=== PATIENT | female | born 1960 | race Two or more races ===

== ENCOUNTER 2025-07-23 18:02 | Inpatient (IN) | payer MEDICAID, SELFPAY ==
[2025-07-23] VITALS (9 sets, daily range): BP systolic 138–205; BP diastolic 81–105; PULSE 59–80; RESP 14–97; TEMP 36.9–37; O2SAT 97–99
--- NOTE | 2025-07-23 18:38 | PD.EDFEVER ---
ED Fever RME/HPI General Chief Complaint: Neuro Symptoms/Deficit Stated Complaint: MOUTH MOVES TO ONE SIDE, DIFF CHEWING Time Seen by Provider: 07/23/25 18:59 Arrival date/time: 07/23/25 18:02 RME / HPI RME / HPI Narrative: See MDM for Dr. Mcclure's HPI Documentation. Related Data Home Medications ?Medication ?Instructions ?Recorded ?Confirmed simvastatin 40 mg tablet 40 mg PO QDAY 07/23/25 07/23/25 Allergies Allergy/AdvReac Type Severity Reaction Status Date / Time No Known Allergies Allergy Verified 07/23/25 18:11 Review of Systems Review of Systems Systems Reviewed: All systems reviewed, normal except as documented Past Medical History Past Medical History CARDIAC: Positive Hypercholesterolemia and Hypertension RESPIRATORY: Positive Asthma Physical Exam Narrative Physical exam: See MDM for Dr. Mcclure's Physical Exam Documentation. ED Exam Narrative Physical exam: See MDM for Dr. Mcclure's Physical Exam Documentation. Course Quality Measures none Orders Category Date Time Status Bedside Blood Glucose NOW Care 07/23/25 19:00 Active Chief Medical Physicist Q4H START 00 Care 07/23/25 19:00 Active Continuous Pulse Oximetry NOW Care 07/23/25 19:00 Completed EKG (ED ONLY) *Do not use* NOW Care 07/23/25 19:00 Completed In and Out Catheter NEEDED Care 07/23/25 19:00 Active Insert IV NOW Care 07/23/25 19:00 Active NIH Stroke Scale now Care 07/23/25 19:00 Active NPO NOW Care 07/23/25 19:00 Active Nurse Swallow Screen x1 Care 07/23/25 19:00 Active Consult to Neurology / Tele-Neurology Routine Cons 07/23/25 19:[address] angio stroke protocol Stat Exams 07/23/25 19:[address] stroke protocol Stat Exams 07/23/25 19:00 Completed EKG (ED Only) Stat Exams 07/23/25 19:00 Draft XR chest 1V portable Stat Exams 07/23/25 19:00 Completed Alcohol, Blood Medical Stat Lab 07/23/25 19:05 Completed B-Type Natriuretic Peptide Stat Lab 07/23/25 19:05 Completed Bilirubin,Direct Stat Lab 07/23/25 19:05 Completed CBC Stat Lab 07/23/25 19:05 Completed Comprehensive Metabolic Panel Stat Lab 07/23/25 19:05 Completed Drug Screen,Urine Stat Lab 07/23/25 19:35 Completed Hemoglobin A1C [Glycohemoglobin w (eAG)] Stat Lab 07/23/25 19:05 Completed Magnesium Stat Lab 07/23/25 19:05 Completed Partial Thromboplastin Time Stat Lab 07/23/25 19:05 Completed Prothrombin Time with INR Stat Lab 07/23/25 19:05 Completed TSH [Thyroid Stimulating Hormone] Stat Lab 07/23/25 19:05 Completed Troponin I Stat Lab 07/23/25 19:05 Completed Urinalysis, C/S if Indicated Stat Lab 07/23/25 19:35 Completed Aspirin Chew Med 07/23/25 19:27 Discontinued 324 mg PO X1 ONE Clopidogrel [Plavix] Med 07/23/25 19:27 Discontinued 300 mg PO X1 ONE Labetalol* IV [Trandate* IV] Med 07/23/25 19:00 Active 10 mg IVP Q15M PRN Ondansetron Inj [Zofran Inj] Med 07/23/25 19:00 Active 4 mg IVP Q4HR PRN Sodium Chloride 0.9% 1000 ml [Ns] 1,000 ml Med 07/23/25 19:00 Active IV Q10H Oxygen Delivery NOW RT 07/23/25 19:00 Active Vital Signs Vital signs: Vital Signs Temperature 98.5 F 07/23/25 18:18 Pulse Rate 67 07/23/25 18:18 Respiratory Rate 20 07/23/25 18:18 Blood Pressure 205/90 H 07/23/25 18:18 Oxygen Delivery Method Room Air 07/23/25 18:18 Fever MDM Narrative MDM Narrative:: This section includes all my notes and documentations, including HPI, PE, and ED course. Jonh Mcclure MD HPI: 64 y/o female with Hx of Hypercholesterolemia, HTN, and Asthma here with severe headache, right-sided facial droop, and chest pain x approximately 24 hours. Equivocal speech impairment, patient has trouble describing in details. No visual impairment. No loss of power in the arms or legs. No other complaints. ROS: All negative except as documented in HPI. Physical Exam: General: Alert and oriented. Eyes: Conjunctivae and lids clear. EOMI. PERRL. ENT: No nasal congestion. Neck: Supple. No carotid bruit. No JVD. Heart: RRR. Lungs: No respiratory distress. Good air movement. No rhonchi, wheezing, rales. Abdomen: Soft and nontender. Legs: No clubbing, cyanosis, edema. Skin: Warm and dry. Neuro: Alert and oriented X 3. Cranial Nerves II-XII grossly intact except equivocal right sided facial droop and equivocal slurred speech. No peripheral motor deficits. I reviewed all diagnostic test results: My interpretation of the EKG is: Sinus rhythm (70 bpm) with nonspecific ST-T changes. My interpretation of the chest x-ray is: NAD. My review of the Head/Neck CTA report is: No acute findings. My review of the Head/Brain CT report is: No acute findings. Blood tests and urine tests unremarkable. At this point, diagnoses include: Stroke-like Symptoms Treatment here included: IVF ASA 324 mg Plavix 100 mg Patient remained stable. I discussed the case with telehealth neurologist. About the presentation and exam and diagnostics and treatments here. Recommended hospitalization for further care. I discussed the case with our hospitalist. About the presentation and exam and diagnostics and treatments here. And need of further care in the hospital. Will accept the patient. Jonh Mcclure MD Patient data External records reviewed:: [facility] previous records (Reviewed prior ED records from 11/28/22. Patient was seen for Abdominal pain.) Clinical information provided by:: patient Social determinants that could affect healthcare access:: none Patient has the following chronic illnesses:: Hypercholesterolemia, HTN, Asthma How is presenting disease/condition affected by chronic disease/condition?: exacerbated by Evaluation data The following diagnostics were reviewed and interpreted by me:: lab results, radiology exam(s) and EKG tracing(s) (My interpretation of the EKG is: Sinus rhythm (70 bpm) with nonspecific ST-T changes. Jonh Mcclure MD) Lab and/or radiology exams considered but not ordered:: None Interpretation Summary: I reviewed all diagnostic test results: My interpretation of the EKG is: Sinus rhythm (70 bpm) with nonspecific ST-T changes. My interpretation of the chest x-ray is: NAD. My review of the Head/Neck CTA report is: No acute findings. My review of the Head/Brain CT report is: No acute findings. Blood tests and urine tests unremarkable. Medications / Prescriptions Medications or Prescriptions considered but not ordered:: None Medication administrations:: Medication Administration History Acetaminophen (Acetaminophen 325 Mg Tablet) 650 mg PO Q6H PRN PRN Reason: Fever >101.5 Stop: 08/22/25 21:14 Artificial Tears (Artificial Tears 225 Drop/15 Ml Btl) 0 drop BOTH EYES Q4HR PRN PRN Reason: TO KEEP EYES MOIST Stop: 08/22/25 23:08 Aspirin (Aspirin Ec 81 Mg Tabec) 81 mg PO QDAY CARISSA Stop: 08/23/25 08:59 Clopidogrel Bisulfate (Clopidogrel Bisulfate 75 Mg Tablet) 75 mg PO QDAY CARISSA Stop: 08/23/25 08:59 Enoxaparin Sodium (Enoxaparin Sod Inj 40 Mg/0.4 Ml Syringe) 40 mg SC QDAY CARISSA Stop: 08/07/25 08:59 Hydralazine HCl (Hydralazine Inj 20 Mg/Ml Vial) 10 mg IVP Q2HR PRN PRN Reason: SBP>170 or DBP>100 Stop: 08/22/25 21:59 Last Admin: 07/23/25 23:51 Dose: 10 mg Documented By: ARGELIA Sodium Chloride (Ns) 1,000 mls @ 100 mls/hr IV Q10H CARISSA Stop: 08/22/25 18:59 Last Admin: 07/24/25 05:19 Dose: 100 mls/hr Documented By: Infusion: 07/24/25 05:19 Dose: Infused Documented By: Admin: 07/23/25 19:49 Dose: 100 mls/hr Documented By: ROSINA Labetalol HCl (Labetalol Inj 5 Mg/Ml Vial 4 Ml) 10 mg IVP Q15M PRN PRN Reason: hypertension Lorazepam (Lorazepam 0.5 Mg Tablet) 1 mg PO X1 PRN PRN Reason: Before MRI Stop: 07/28/25 21:56 Ondansetron HCl (Ondansetron Inj 2 Mg/Ml Inj 2 Ml) 4 mg IVP Q4HR PRN PRN Reason: NAUSEA OR VOMITING Stop: 08/22/25 18:59 Discontinued Medications Aspirin (Aspirin 81 Mg Chew) 324 mg PO X1 ONE Stop: 07/23/25 19:28 Last Admin: 07/23/25 19:46 Dose: 324 mg Documented By: DT Clopidogrel Bisulfate (Clopidogrel Bisulfate 75 Mg Tablet) 300 mg PO X1 ONE Stop: 07/23/25 19:28 Last Admin: 07/23/25 19:47 Dose: 300 mg Documented By: DT Treatment here from me included: IVF ASA 324 mg Plavix 100 mg Consultations Consultation(s) initiated? (list below): Yes Consultation #1 (Physician, Specialty, Details): I discussed the case with telehealth neurologist. About the presentation and exam and diagnostics and treatments here. Recommended hospitalization for further care. Time: 19:00 Consultation #2 (Physician, Specialty, Details): I discussed the case with our hospitalist. About the presentation and exam and diagnostics and treatments here. And need of further care in the hospital. Will accept the patient. Time: 19:57 Diagnosis Fever Differential Diagnosis: other (CVA, TIA, brain tumor, migraine headache, psychogenic) Most likely diagnosis given after review of the tests above:: Stroke-like Symptoms Admission Indicated Admission indicated?: indicated Explain why admission is indicated or not indicated:: Stroke-like Symptoms Admission Request Was there a request for admission?: Yes Admission Attestation Admission request attestation: Discussed case with Hospitalist service regarding admission. Discussed patients ED course, exam findings, labs, and radiology results. Agreed to accept the patient for admission. Disposition Plan Disposition Plan: Admit Discharge Plan Plan Patient Disposition: Admit Acute Care w/in Hospital Problem List Clinical Impression: Stroke-like symptoms
--- NOTE | 2025-07-23 19:00 | XR_ITS ---
EXAMINATION: AP chest single view TECHNIQUE: AP portable upright chest single view Date and time: July 23, 2025, 1937 hours INDICATIONS: Stroke alert, onset shortness of breath dizziness weakness today. FINDINGS: No significant cardiac enlargement No pneumonia or pulmonary edema. Prominent osteopenia IMPRESSION: No aspiration pneumonia
--- NOTE | 2025-07-23 19:00 | XR_ITS ---
Examination: CT brain head without contrast. 2-D sagittal coronal reconstructions Date and time of exam: July 23, 2025, 1917 hours INDICATIONS: Stroke alert, onset focal neurologic deficit left-sided facial weakness left-sided facial droop beginning 2 days ago CTDI: vol (mGy): 50.6 DLP: (mGycm): 987 Technique: Multiple CT axial sections of the brain have been obtained, 5 mm slice thickness. Contrast has not been administered. 2-D sagittal, coronal reconstructions have been obtained Low dose protocols were performed. One or more of the following dose reduction techniques were used; automated exposure control, adjustment of the mA and/or KV according to patient size, use of iterative reconstruction technique. Findings: No significant ventricular enlargement. Intra-axial or extra-axial hemorrhage density is not seen. No mass effect or midline shift Basal cisterns are not remarkable. Fourth ventricle is midline. Cranial vault intact. Impression: Negative for acute hemorrhage, mass effect or midline shift
--- NOTE | 2025-07-23 19:00 | XR_ITS ---
Examination: CTA carotids with intravenous contrast CTA brain, head with intravenous contrast. 2-D sagittal, coronal reconstructions. 3-D reconstructions. Exam date and time: July 23, 2025, 1918 hours INDICATIONS: Stroke alert, onset focal neurologic deficit including right facial droop and right-sided body weakness CTDI: vol (mGy) 20.5 DLP: (mGycm) 486 Technique: Multiple CTA axial brain, head carotid images post intravenous contrast injection 75 cc, [id number]. 2-D sagittal, coronal reconstructions. 3-D reconstructions, 3-D post processing including vascular maximum intensity projection images. Low dose protocols were performed. One or more of the following dose reduction techniques were used; automated exposure control, adjustment of the mA and/or KV according to patient size, use of iterative reconstruction technique. Findings: No significant common carotid carotid bifurcation or internal carotid artery stenoses At least 50% stenosis proximal left vertebral artery axial image 161 Dominant right vertebral artery Intracranial vertebral arteries basilar artery posterior cerebral branches fill with no large vessel occlusions Juxtasellar internal carotid arteries intact M1 segments middle cerebral arteries middle cerebral artery trifurcation vessels and anterior cerebral arteries fill with no large vessel occlusions IMPRESSION: No significant carotid neck arterial stenoses At least 50% stenosis proximal left vertebral artery, consider carotid vertebral Doppler sonography follow-up to assess for retrograde flow in the left vertebral artery No cerebral large vessel arterial occlusions or thrombus
--- NOTE | 2025-07-23 19:00 | EKG_ITS ---
[facility] Test Date: 2025-07-23 Pat Name: HARRY LOGAN Department: Room: - Gender: Female Manager Application Development: : 1960 Requested By: Jonh Medina Order Number: [id number] Reading MD: Jonh Medina Measurements Intervals [place] Rate: 70 P: 62 TX: 190 QRS: -10 QRSD: 102 T: 57 QT: 407 QTc: 440 Interpretive Statements SINUS RHYTHM LEFT VENTRICULAR HYPERTROPHY AND ST-T CHANGE [VOLTAGE CRITERIA PLUS ST/T ABNORMALITY] No previous ECG available for comparison /store/S0/[id number].pdf
--- NOTE | 2025-07-23 19:10 | ESCONSULT_ITS ---
Tele Neuro Consultation Consultation Date 07/23/25 Most Recent Vital Signs Last Vital Signs Temp 98.5 F 07/23/25 18:18 Pulse 67 07/23/25 18:18 Resp 20 07/23/25 18:18 BP 205/90 H 07/23/25 18:18 O2 Del Method Room Air 07/23/25 18:18 Consultation Narrative Tele Stroke Consult Note [facility] Tele[facility]urology Consult Services Patient Name:???Carlene Healy Date of :???1960 Identification Number:??? Date of Service:???07/23/2025 19:01:52 Diagnosis:?R29.810 - Facial numbness/ Facial weakness ?G50.9 - Disorder of facial nerve, unspecified Impression: ?facial weakness with facial weakness in a peripheral-appearing pattern; possible acute ischemic stroke in the dorsal janina or dorsal midbrain vs peripheral cranial nerve VII palsy ? ?Plan: Load with aspirin 325 mg x1 and plavix 300 mg x1 (if patient can swallow safely vs aspirin 300 mg rectally if patient cannot swallow safely). Will tentatively plan to continue dual antiplatelet therapy for 21 days with aspirin 81 mg daily and plavix 75 mg daily for 21 days followed by antiplatelet monotherapy therapy thereafter (unless an indication for anticoagulation therapy identified) pending clinical course and stroke workup. As symptoms have been present for >24 hours, there is no need for permissive hypertension so recommend goal normotension with SBP <180. Recommend admission for further workup. Will need an MRI brain WITH THIN CUTS THROUGH THE BRAINSTEM when able, echo, continue to monitor on telemetry, labs for risk factor stratification (lipid panel, HbA1c, TSH with free T4), PT/OT/speech eval. Can use lubricating gel eye drops as needed for symptomatic relief. Can use eye patch on the symptomatic eye if needed to prevent corneal abrasion at night (although patient is able to fully close eye). ? ?Plan discussed with patient and ED team, including ED provider, who are all in agreement with plan. All questions were answered to the best of my ability. Sign Out: ? Discussed with Emergency Department Provider Advanced Imaging:CTA Head and Neck Completed. LVO:No Patient is not a candidate for DRU Metrics: Last Known Well: 07/21/2025 when she went to bed Arrival Time: 07/23/2025 18:02:00 Activation Time: 07/23/2025 19:01:52 Initial Response Time: 07/23/2025 19:03:18Symptoms: right-sided facial droop and trouble chewing. Initial patient interaction: 07/23/2025 19:07:00 NIHSS Assessment Completed: 07/23/2025 19:13:34Patient is not a candidate for Thrombolytic. Thrombolytic Medical Decision: 07/23/2025 19:13:37Patient was not deemed candidate for Thrombolytic because of following reasons: LKW outside 4.[address] Head: I personally reviewed all the CT images that were available to me and it showed: Imaging was personally reviewed. CTH is negative for bleed or early ischemic changes. CTA head/neck shows minimal scattered atherosclerotic plaques but vessels are patent without high grade stenosis or large vessel occlusion. There is a short segment moderate stenosis of the left vertebral artery at the distal V1 segment but remains patent along the entirety of its course. There is a focal area of stenosis of the left distal cavernous internal carotid artery. Primary Provider Notified of Diagnostic Impression and Management Plan on: 07/23/2025 19:24:50 History of Present Illness:Patient is a 64 year old Female. Patient was brought by private transportation with symptoms of right-sided facial droop and trouble chewing. 64 yo [place]i-speaking woman with a history of hypertension, hyperlipidemia, who presents to the ED with RIGHT facial droop and trouble chewing. History and exam obtained in O[place]i. LKW on 07/21/25 when she went to bed. She woke up at 0800 am on 07/22/25 with symptoms. she reports symptoms have remained constant since onset. She endorses difficulty chewing and feels like she has to speak more deliberately to enunciate more clearly. she reports some blurred vision. Patient is also feeling unsteady and off balance. No focal weakness/numbness/tingling of the extremities. At baseline, patient ambulates independently without assistive device. EKG shows normal sinus rhythm with heart rate 70. ? Past Medical History: ?Hypertension ?Hyperlipidemia ?There is no history of Diabetes Mellitus ?There is no history of Stroke Other PMH:? cervical spinal stenosis in the setting of cervical disc protrusion at C4-C5 (noted on MRI cervical spine in 2019) Medications: No Anticoagulant use? No Antiplatelet use Reviewed EMR for current medications Allergies:? Reviewed Social History: Smoking: No Family History: There is no family history of premature cerebrovascular disease pertinent to this consultation ROS : 14 Points Review of Systems was performed and was negative except mentioned in HPI. Past Surgical History: There Is No Surgical History Contributory To Today?s Visit ? Examination: BP(205/90),?Pulse(67),?Blood Glucose(184) 1A: Level of Consciousness - Alert; keenly responsive?+ 0 1B: Ask Month and Age - Both Questions Right?+ 0 1C: Blink Eyes & Squeeze Hands - Performs Both Tasks?+ 0 2: Test Horizontal Extraocular Movements - Normal?+ 0 3: Test Visual Corral - No Visual Loss?+ 0 4: Test Facial Palsy (Use Grimace if Obtunded) - Unilateral Complete paralysis (upper/lower face)?+ 3 5A: Test Left Arm Motor Drift - No Drift for 10 Seconds?+ 0 5B: Test Right Arm Motor Drift - No Drift for 10 Seconds?+ 0 6A: Test Left Leg Motor Drift - No Drift for 5 Seconds?+ 0 6B: Test Right Leg Motor Drift - No Drift for 5 Seconds?+ 0 7: Test Limb Ataxia (FNF/Heel-Dodd) - No Ataxia?+ 0 8: Test Sensation - Normal; No sensory loss?+ 0 9: Test Language/Aphasia - Normal; No aphasia?+ 0 10: Test Dysarthria - Normal?+ 0 11: Test Extinction/Inattention - No abnormality?+ 0 NIHSS Score:?3 NIHSS Free Text :?Patient is awake, alert, oriented to age and month. speech is fluent without dysarthria, word finding pauses, or paraphasic errors. Able to name objects without difficulty. Able to follow commands without difficulty. Initially appeared to have a LEFT facial droop with smile; however, cheek puff revealed a RIGHT sided weakness. Additionally there is slightly weaker eye closure on the LEFT and delayed blink on the left. Eyes conjugate on primary gaze. Full EOM in the horizontal plane in both directions. No visual field cut noted on direct confrontation testing. Sensation intact to light touch on face and extremities bilaterally. Antigravity without drift in all four extremities. Able to ambulate from the CT table to the stretcher unassisted. Pre-Morbid Modified [place] Scale: 1 Points = No significant disability despite symptoms; able to carry out all usual duties and activities Spoke with :?Dr. Mcclure This consult was conducted in real time using interactive audio and video technology. Patient was informed of the technology being used for this visit and agreed to proceed. Patient located in hospital and provider located at [facility] e/office setting. Patient is being evaluated for possible acute neurologic impairment and high probability of imminent or life-threatening deterioration. I spent total of 46 minutes providing care to this patient, including time for face to face visit via telemedicine, review of medical records, imaging studies and discussion of findings with providers, the patient and/or family. Dr Mary Irizarry [facility] For Inpatient follow-up with [facility] physician please call [facility] at . As we are not an outpatient service for any post hospital discharge needs please contact the hospital for assistance. If you have any questions for the [facility] physicians or need to reconsult for clinical or diagnostic changes please contact us via [facility] at . Non-radiologist review of imaging performed to assist with emergent clinical decision-making. Remote physician workstations do not possess the same resolution, calibration, or diagnostic capabilities as hospital-based radiology reading stations, and formal radiologist read is necessary. Signature :[place] Irizarry
[2025-07-23 19:12] LABS: Basophils # (Auto) 0.0 Thou/mm3 (0.0-0.2); Basophils % (Auto) 0 % (0-2.5); Eosinophils # (Auto) 0.0 Thou/mm3 (0.0-0.5); Eosinophils % (Auto) 0 % (0-10); Hematocrit 36.1 % (36.0-46.0); Hemoglobin 13.0 g/dL (12.0-16.0); Immature Granulocytes Auto 0.01 Thou/mm3 (0.00-0.00); Lymphocytes # (Auto) 1.7 Thou/mm3 (1.0-4.8); Lymphocytes % (Auto) 24 % (10-50); Mean Corpuscular HGB Conc 36.0 g/dl (31.0-37.0); Mean Corpuscular Hemoglobin 30.6 pg (25.0-35.0); Mean Corpuscular Volume 85 fL (80-100); Monocytes # (Auto) 0.4 Thou/mm3 (0.0-0.8); Monocytes % (Auto) 5 % (0-12); Neutrophils # (Auto) 5.1 Thou/mm3 (1.8-7.7); Neutrophils % (Auto) 70 % (37-80); Nucleated Red Blood Cell # 0.00 Thou/mm3 (0.00-0.00); Nucleated Red Blood Cell % 0 /100 WBC (0); Platelet Count 175 Thou/mm3 (140-440); RDW Standard Deviation 37.9 fL (36.4-46.3); Red Blood Count 4.25 Miln/mm3 (4.00-5.20); White Blood Count 7.2 Thou/mm3 (3.6-11.0)
[2025-07-23 19:32] LABS: B-Type Natriuretic Peptide 43 pg/mL (0-100)
[2025-07-23] MEDS: ASPIRIN 81 MG CHEW 324 MG PO (19:46)
[2025-07-23] MEDS: CLOPIDOGREL BISULFATE 75 MG TABLET 300 MG PO (19:47)
[2025-07-23] MEDS: SODIUM CHLORIDE 0.9% 1000 ML 1,000 ML 100 ML IV (19:49)
[2025-07-23 19:50] LABS: Alanine Aminotransferase 28 U/L (10-49); Albumin, Serum 4.7 gm/dL (3.4-4.8); Albumin/Globulin Ratio 1.9 (1.2-2.2); Alcohol, Blood Medical < 3.0 mg/dL (0-10.0); Alkaline Phosphatase 67 U/L (46-116); Anion Gap 10 (7-16); Aspartate Amino Transferase 36 U/L (0-34); BUN/Creatinine Ratio 9 Ratio (12-20); Bilirubin,Direct < 0.1 mg/dL (0.0-0.3); Bilirubin,Total 0.3 mg/dL (0.3-1.2); Blood Urea Nitrogen 8 mg/dL (9-23); Calcium 10.4 mg/dL (8.3-10.6); Calcium (Corrected) 10.4 mg/dL (8.5-10.1); Carbon Dioxide 28.8 mMol/L (20.0-31.0); Chloride 102 mMol/L (98-107); Creatinine (Component) 0.9 mg/dL (0.6-1.3); Globulin 2.5 gm/dL (2.3-3.5); Glucose 181 mg/dL (74-106); INR 0.9 (0.9-1.3); Magnesium 1.7 mg/dL (1.6-2.6); Osmolality,Calculated 284 (275-295); Partial Thromboplastin Time 25.6 Seconds (22.0-36.0); Potassium 3.4 mMol/L (3.4-5.1); Prothrombin Time 10.0 Seconds (9.0-12.2); Sodium 141 mMol/L (136-145); Thyroid Stimulating Hormone 1.67 uIU/mL (0.55-4.78); Total Protein 7.2 gm/dL (5.7-8.2); Troponin I < 0.020 ng/mL (0.0-0.045); eGFR > 60 See Note
[2025-07-23 19:57] LABS: Collection Type, Urine Clean Catch
[2025-07-23 20:09] LABS: Bilirubin,Urine Negative (Negative); Blood,Urine Negative (Negative); Clarity,Urine Clear (Clear/Hazy); Color,Urine Colorless (Lt Yel-Yel); Culture Indicated,Urine Not Indicated; Glucose, Urine Negative (Negative); Ketones,Urine Negative (Negative); Leukocyte Esterase,Urine Negative (Negative); Nitrite,Urine Negative (Negative); PH,Urine 6.5 (5.0-7.0); Protein,Urine Negative (Neg - Trace); RBC,Urine 3 /hpf (0-3); Specific Gravity,Urine 1.025 (1.001-1.035); Squamous Epithelial Cell,Urine < 1 /hpf (0-5); Urobilinogen,Urine Negative mg/dL (0.0-1.0); WBC,Urine < 1 /hpf (0-5)
[2025-07-23 20:31] LABS: Amphetamine/Methamp Scrn,U Negative (Negative); Barbiturate Screen,Urine Negative (Negative); Benzodiazepines Screen,Urine Negative (Negative); Benzoylecgonine Screen, Ur Negative (Negative); Fentanyl Screen,Urine Negative (Negative); Opiate Screen,Urine Negative (Negative); THC Screen,Urine Negative (Negative)
--- NOTE | 2025-07-23 21:17 | ECHO_ITS ---
Patient Info Name: Carlene Healy Age: 64 years : 1960 Gender: Female Wt: 79 kg BP: 127 / 69 mmHg HR: 63 bpm Exam Date: 07/24/2025 2:21 PM Admit Date: 07/23/2025 Site: [facility] Room Number: [id number] Patient Status: I Exam Type: CA echo doppler complete Traffic Engineering Technician: Consuelo Cuevas Ordering Physician: Mari Bryant Study Info Indications CVA workup - Contrast/Agitated Saline Contrast/Ag. Saline: Agitated Saline Amount: --- ml IV Access Condition: patent with no signs of infiltration Primary Location: [id number] Left Ventricular Outflow Tract Name Value Normal LVOT 2D LVOT Diameter 1.8 cm LVOT Doppler LVOT Peak Velocity 129 cm/s LVOT Mean Gradient 3 mmHg LVOT VTI 30 cm LVOT VTI/AV VTI Ratio 0.9 LVOT Stroke Volume 75 ml Pulmonic Valve Name Value Normal PV Doppler PV Peak Velocity 111 cm/s Mitral Valve Name Value Normal MV Doppler MV Decel [place] 369 cm/s2 MV PHT 48 ms MV Area (PHT) 4.6 cm2 4.0-5.0 MV Diastolic Function MV E Peak Velocity 61 cm/s MV A Peak Velocity 64 cm/s MV E/A 1.0 MV Annular TDI MV Septal e' Velocity 8.4 cm/s MV E/e' (Septal) 7.3 MV Lateral e' Velocity 7.9 cm/s MV E/e' (Lateral) 7.7 MV e' Average 8.16 cm/s MV E/e' (Average) 7.5 Tricuspid Valve Name Value Normal TV Regurgitation Doppler TR Peak Velocity 207 cm/s Estimated PAP/RSVP RA Pressure 8 mmHg <=5 PA Systolic Pressure 25 mmHg <36 RV Systolic Pressure 25 mmHg <36 TV Annular TDI TV Lateral Susan s' Velocity 14.3 cm/s >=9.5 Aortic Valve Name Value Normal AV 2D/MM AV Cusp Sep (MM) 1.2 cm AV Doppler AV Peak Velocity 130 cm/s AV Mean Gradient 4 mmHg AV VTI 32 cm AV Area (Cont Eq VTI) 2.4 cm2 >=3.0 AV Area (Cont Eq Rosales) 2.5 cm2 AV DI (Rosales) 0.99 AV Regurgitation 2D LVOT Area 2.5 cm2 Ventricles Name Value Normal LV Dimensions 2D/MM IVS Diastolic Thickness (2D) 1.0 cm 0.6-0.9 LVID Diastole (2D) 4.6 cm 3.8-5.2 LVID Systole (2D) 3.4 cm 2.2-3.5 LVOT Diameter 1.8 cm LV Mass (2D Cubed) 104.77 g 67.00-162.00 Relative Wall Thickness (2D) 0.20 <=0.42 IVS/LVIW Diastolic Thickness (2D) 2.17 0.00-1.50 LV Fractional Shortening/Ejection Fraction 2D/MM LV Fractional Shortening (2D) 26 % 27-45 LV EF (2D Teichholz) 51 % RV Dimensions 2D/MM TV Lateral Susan s' Velocity 14.3 cm/s >=9.5 Atria Name Value Normal LA Dimensions LA Volume (4C A-L) 31 ml LA Volume (BP A-L) 35 ml Left Ventricle Left ventricular chamber dimension is normal. Left ventricular systolic function is normal with visually estimated ejection fraction of 55-60%. There is mild concentric hypertrophy noted in the left ventricle. Left ventricular segmental wall motion is normal. There is grade I diastolic dysfunction in the left ventricle. Right Ventricle Right ventricular chamber dimension is normal. Right ventricular systolic function is normal. Left Atrium Left atrial chamber dimension is mildly enlarged. Right Atrium Right atrial chamber dimension is normal. Aortic Valve The aortic valve is trileaflet. There is no aortic valve sclerosis. There is no aortic valve stenosis with a peak velocity of 130 cm/s, mean gradient of 4 mmHg, and aortic valve area of 2.4 cm2. There is trace aortic valve regurgitation. Pulmonic Valve The pulmonic valve is normal. There is no pulmonic valve stenosis. There is no pulmonic regurgitation. Mitral Valve The mitral valve has normal leaflets. There is no mitral valve stenosis. There is trace mitral valve regurgitation. Tricuspid Valve The tricuspid valve leaflets are normal. There is no tricuspid valve stenosis. There is trace tricuspid valve regurgitation. No pulmonary hypertension, estimated pulmonary arterial systolic pressure is 25 mmHg and systemic blood pressure of 127 mmHg in systole. Pericardium/Pleural The pericardium appears normal. There is no pericardial effusion. No pleural effusion visualized. Inferior Vena Cava Not well visualized inferior vena cava with >50% collapse upon inspiration consistent with normal right atrial pressure, 8 mmHg. Aorta The aortic measurements are indexed to age and body surface area. The aortic root at the sinus of Valsalva is not well visualized. The prox ascending aorta is not well visualized. Summary 1. Bubble study negative for any PFO or ASD. Consider RIKKI if high index of clinical suspicion. 2. Left ventricle size is normal and systolic function is normal. Estimated ejection fraction is 55-60%. There is grade 1 diastolic dysfunction. 3. Right ventricle chamber size is normal and systolic function is normal. Estimated RVSP is 25 mmHg. 4. There is trace aortic valve regurgitation. 5. There is trace mitral valve regurgitation. 6. There is trace tricuspid valve regurgitation. 7. The left atrium is mildly enlarged. The right atrium is normal. Report Signatures Finalized by Tank Xavier on 07/27/2025 02:48 AM
--- NOTE | 2025-07-23 21:22 | ESHP_ITS ---
Documentation for date of: 07/23/25 HPI History of Present Illness History of present illness: 64 y/o female with Hx of Hypercholesterolemia, HTN, and Asthma presents with severe headache, right-sided facial droop, and chest pain x approximately 24 hours. Admitted per tele neuro for MRI in AM and stroke work up. ED Course Summary Vitals: 205/90 HR 67 RR 20 T 98.5F O2 97% RA Labs: CBC CMP UA all unremarkable Imaging: CXR no aspiration pneumonia Head CT Negative for acute hemorrhage, mass effect or midline shift Head/Neck CTA No significant carotid neck arterial stenoses. At least 50% stenosis proximal left vertebral artery, consider carotid vertebral. Doppler sonography follow-up to assess for retrograde flow in the left vertebral artery. No cerebral large vessel arterial occlusions or thrombus EKG HR 70 QTc 440 sinus rhythm Treatment: NaCl 1L, clopidogrel 300 aspirin 300 Consults and why: Teleneuro for stroke r/o 07/22 patient woke up with one sided weakness on her face, and felt like the right side of her face was pulling on the left. Her vision was blurry and she endorsed diplopia and dizziness and she also felt palpitations of her heart. She denied visual changes and loss of consciousness. She also has a headache that wraps from her forehead to the back of her head. Initially she felt numbness and tingling of her right foot but it has since resolved. Code: DNR/DNI Insulin: No Medical Hx: Please see 1 liner above Medications: simvastatin 40mg Allergies: NKA Surgical history: cholecystectomy Fhx: mom had a stroke Living: with and kids nearby Work:[employer] Alcohol: never Cigarettes/tobacco: never Recreational drugs: never All 12 systems reviewed and were negative except otherwise stated in HPI. Exam Vital Signs Temp Pulse Resp BP Pulse Ox O2 Del Method 98.6 F 64 14 170/89 H 99 Room Air 07/23/25 19:52 07/23/25 19:52 07/23/25 19:52 07/23/25 19:52 07/23/25 19:52 07/23/25 19:52 Narrative Exam GENERAL APPEARANCE: AOx3. NAD, activity normal for age, well developed/ well nourished, no cyanosis, pallor, or diaphoresis. HEENT: Normocephalic atraumatic, no facial trauma, neck is supple. Lids/conjunctiva normal. Mucous membranes moist, nares normal, lips/teeth normal uvula midline without oral pharyngeal erythema, exudate or swelling TMs normal bilaterally. No lymphangitis/lymphedema. CARDIAC: Regular rate and rhythm, S1+S2 heard. No murmurs, rubs, or gallops noted RESPIRATORY: respiratory effort normal, speaks in full sentences, no tripod position, no accessory muscle use. Lungs clear to auscultation without rhonchi, wheezes, rales ABDOMINAL: NBS. Soft, ND/NT. No evidence of fluid wave. No pulsatile masses on exam, rebound tenderness, Templeton sign or pain over Mcburney's point. MUSCLES/EXTREMITIES: No abnormal range of motion, no swelling. DERM: Warm, pink and dry. No rashes, dermatoses, petechiae or lesions. NEUROLOGICAL: Speech is clear and appropriate. Normal level of consciousness. 5 /5 strength in all extremities. L sided facial droop, + forehead wrinkles. Sensation grossly intact. PSYCH: Normal mood and affect. Judgement/competence is appropriate Results: Labs 07/25/25 05:49 07/25/25 05:49 Labs: Short CBC 07/23/25 Range/Units 19:05 WBC 7.2 (3.6-11.0) Thou/mm3 Hgb 13.0 (12.0-16.0) g/dL Hct 36.1 (36.0-46.0) % Plt Count 175 (140-440) Thou/mm3 BMP 07/23/25 19:05 Sodium 141 Potassium 3.4 Chloride 102 Carbon Dioxide 28.8 BUN 8 L Creatinine 0.9 Glucose 181 H Calcium 10.4 Cardiac Enzymes 07/23/25 Range/Units 19:05 Troponin I < 0.020 (0.0-0.045) ng/mL Liver Function 07/23/25 Range/Units 19:05 Total Bilirubin 0.3 (0.3-1.2) mg/dL Direct Bilirubin < 0.1 (0.0-0.3) mg/dL AST 36 H (0-34) U/L ALT 28 (10-49) U/L Alkaline Phosphatase 67 (46-116) U/L Albumin 4.7 (3.4-4.8) gm/dL Urine 07/23/25 Range/Units 19:35 Urine Color Colorless A (Lt Yel-Yel) Urine Clarity Clear (Clear/Hazy) Urine pH 6.5 (5.0-7.0) Ur Specific [place] 1.025 (1.001-1.035) Urine Protein Negative (Neg - Trace) Urine Glucose (UA) Negative (Negative) Quality Measures Quality Measures VTE prophylaxis Medications Home Medications and Allergies Home Medications ?Medication ?Instructions ?Recorded ?Confirmed ?Type simvastatin 40 mg tablet 40 mg PO QDAY 07/23/2507/23 History Allergies Allergy/AdvReac Type Severity Reaction Status Date / Time No Known Allergies Allergy Verified 07/23/25 18:11 Visit Medications Acetaminophen (Acetaminophen 325 Mg Tablet) 650 mg PO Q6H PRN PRN Reason: Fever >101.5 Stop: 08/22/25 21:14 Aspirin (Aspirin Ec 81 Mg Tabec) 81 mg PO QDAY [facility] Stop: 08/23/25 08:59 Clopidogrel Bisulfate (Clopidogrel Bisulfate 75 Mg Tablet) 75 mg PO QDAY [facility] Stop: 08/23/25 08:59 Enoxaparin Sodium (Enoxaparin Sod Inj 40 Mg/0.4 Ml Syringe) 40 mg SC QDAY [facility] Stop: 08/07/25 08:59 Hydralazine HCl (Hydralazine Inj 20 Mg/Ml Vial) 10 mg IVP Q2HR PRN PRN Reason: SBP>170 or DBP>100 Stop: 08/22/25 21:59 Sodium Chloride (Ns) 1,000 mls @ 100 mls/hr IV Q10H [facility] Stop: 08/22/25 18:59 Last Admin: 07/23/25 19:49 Dose: 100 mls/hr Labetalol HCl (Labetalol Inj 5 Mg/Ml Vial 4 Ml) 10 mg IVP Q15M PRN PRN Reason: hypertension Ondansetron HCl (Ondansetron Inj 2 Mg/Ml Inj 2 Ml) 4 mg IVP Q4HR PRN PRN Reason: NAUSEA OR VOMITING Stop: 08/22/25 18:59 Discontinued Medications Aspirin (Aspirin 81 Mg Chew) 324 mg PO X1 ONE Stop: 07/23/25 19:28 Last Admin: 07/23/25 19:46 Dose: 324 mg Clopidogrel Bisulfate (Clopidogrel Bisulfate 75 Mg Tablet) 300 mg PO X1 ONE Stop: 07/23/25 19:28 Last Admin: 07/23/25 19:47 Dose: 300 mg Assessment & Plan Plan 64 y/o female with Hx of Hypercholesterolemia, HTN, and Asthma presents with severe headache, right-sided facial droop, and chest pain x approximately 24 hours. Admitted per tele neuro for MRI in AM and stroke work up. #Stroke like symptoms #Stroke r/o #Hypertensive urgency ddx stroke, migraine, bells palsy Last known normal greater than 1 day before admission. Reported dizziness, diplopia, blurry vision and extremity numbness as well as facial droop. On physical exam 5/5 strength in all extremities. L sided facial droop, + forehead wrinkles. Sensation grossly intact. R foot numbness which has sense resolved. Plan: Per tele neuro -continue dual antiplatelet therapy for 21 days with aspirin 81 mg daily and plavix 75 mg daily for 21 days followed by antiplatelet monotherapy therapy thereafter (unless an indication for anticoagulation therapy identified) -As symptoms have been present for >24 hours, there is no need for permissive hypertension so recommend goal normotension with SBP <180. -MRI brain WITH THIN CUTS THROUGH THE BRAINSTEM -echo -lipid panel, HbA1c, TSH with free T4 -PT/OT/speech eval. -Eye patch or lubricating eye drops for relief Plan: - ASCVD score:____ - Neuro consulted, recs appreciated - Physical therapy referral: - Swallow referral: - ECHO w/ bubble study: - TSH: - Lipid panel: - A1C:___ - Hydralazine inj 10mg IVP Q2HR #Prediabetes #Hyperglycemia Likely type 2 Continue to monitor daily BG [place] patient regarding healthier diet and exercise. Continue outpatient follow up. Health Maintenance: Code status: DNR DVT prophylaxis: Lovenox GI prophylaxis: protonix Diet: NPO pending swallow screen Galvan: None Lines: PIV Supplemental O2: NC Disposition: Tele for stroke r/o Patient seen and reviewed with attending Dr. Bryant. Note written by Clement Huerta MD PGY-1 Attending Provider Attestation/Addendum After examination of the patient and review of the clinical data I feel that this patient needs admission to the hospital for further treatment/evaluation. Plan of care discussed with patient and is in agreement. I Mari Bryant MD, attest that I was physically present for freeman portions of evaluation, and examined patient, labs and imagings and plan of care were discussed with IM residents team, and I agree with the findings and plans documented above.
[2025-07-23 21:24] LABS: Glucose Estimated Average 137 mg/dL (80-131); Hemoglobin A1C 6.4 % Hgb (4.8-6.0)
[2025-07-23] MEDS: hydrALAZINE INJ 20 MG/ML VIAL 10 MG IVP (23:51)
[2025-07-24] VITALS (7 sets, daily range): BP systolic 127–174; BP diastolic 69–87; PULSE 60–81; RESP 16–18; TEMP 36.1–36.4; O2SAT 95–98
--- NOTE | 2025-07-24 | XR_ITS ---
Examinations: MRI Brain without intravenous contrast. MRA brain without intravenous contrast. MRA carotids without intravenous contrast 3-D vascular reconstructions Date and time of exam: July 24, 2025, 1304 hours INDICATIONS: Severe headaches right sided facial droop chest pain beginning 24 hours ago, stroke alert July 23, 2025 7:17 p.m. Technique: Multiple axial and sagittal images of the brain have been obtained MRA brain carotid images without contrast obtained, including 3-D postprocessing, vascular maximum intensity projection images Findings: [place] is not enlarged. The optic chiasm and infundibular stalk are not remarkable. Prepontine and interpeduncular cisterns are not enlarged. No localized enlargement of the medulla or janina. Fourth ventricle and cerebellar tonsils normal in position. Subacute hemorrhage is not seen. Fourth ventricle is midline. Mass in the cerebellopontine angle region is not evident. 7th and 8th nerve complexes exhibits symmetry. Globes are symmetrical with no retro-orbital mass. Increased white matter signal prominent punctate foci increased signal in the white matter Diffusion-weighted images demonstrate no convincing foci of restricted diffusion Mass-effect upon the ventricular system is not identified. MRA carotid images no significant carotid stenoses. MRA brain images no large vessel occlusions Impression: Negative for acute hemorrhage mass effect or midline shift No convincing acute infarct Multiple punctate foci increased signal in the white matter, differential would include demyelinating disease, accelerated chronic microvascular white matter change No cerebral large vessel arterial occlusions
--- NOTE | 2025-07-24 00:04 | PC.NURSE ---
updated patients med rec however pt states she takes blood pressure medications but is unable to confirm which ones at this time and will have daughter bring them tomorrow. Spoke to dr olivera regarding Diet and he states to maintain her strict NPO for now untill she can pass swallow eval.
[2025-07-24] MEDS: SODIUM CHLORIDE 0.9% 1000 ML 1,000 ML 100 ML IV ×2 (05:19→17:55)
[2025-07-24 05:55] LABS: Basophils # (Auto) 0.0 Thou/mm3 (0.0-0.2); Basophils % (Auto) 1 % (0-2.5); Eosinophils # (Auto) 0.0 Thou/mm3 (0.0-0.5); Eosinophils % (Auto) 1 % (0-10); Hematocrit 33.0 % (36.0-46.0); Hemoglobin 11.8 g/dL (12.0-16.0); Immature Granulocytes Auto 0.01 Thou/mm3 (0.00-0.00); Lymphocytes # (Auto) 1.8 Thou/mm3 (1.0-4.8); Lymphocytes % (Auto) 33 % (10-50); Mean Corpuscular HGB Conc 35.8 g/dl (31.0-37.0); Mean Corpuscular Hemoglobin 30.4 pg (25.0-35.0); Mean Corpuscular Volume 85 fL (80-100); Monocytes # (Auto) 0.4 Thou/mm3 (0.0-0.8); Monocytes % (Auto) 8 % (0-12); Neutrophils # (Auto) 3.1 Thou/mm3 (1.8-7.7); Neutrophils % (Auto) 58 % (37-80); Nucleated Red Blood Cell # 0.00 Thou/mm3 (0.00-0.00); Nucleated Red Blood Cell % 0 /100 WBC (0); Platelet Count 164 Thou/mm3 (140-440); RDW Standard Deviation 38.5 fL (36.4-46.3); Red Blood Count 3.88 Miln/mm3 (4.00-5.20); White Blood Count 5.4 Thou/mm3 (3.6-11.0)
[2025-07-24 06:24] LABS: Anion Gap 11 (7-16); BUN/Creatinine Ratio 9 Ratio (12-20); Blood Urea Nitrogen 7 mg/dL (9-23); Calcium 9.1 mg/dL (8.3-10.6); Carbon Dioxide 29.3 mMol/L (20.0-31.0); Cardiac Risk Estimate 3.8 RATIO (3.7-5.6); Chloride 106 mMol/L (98-107); Cholesterol 124 mg/dL (132-200); Creatinine (Component) 0.8 mg/dL (0.6-1.3); Glucose 127 mg/dL (74-106); HDL Cholesterol 33 mg/dL (40-60); LDL Cholesterol,Calculated 54 mg/dL (0-130); Osmolality,Calculated 290 (275-295); Potassium 2.9 mMol/L (3.4-5.1); Sodium 146 mMol/L (136-145); Triglycerides 187 mg/dL (30-150); eGFR > 60 See Note
--- NOTE | 2025-07-24 09:18 | PCS.ST ---
Swallow Evaluation completed. See report for details. No dysphagia. Regular diet ok.
--- NOTE | 2025-07-24 10:02 | PD.RESPRO ---
Documentation for date of: 07/24/25 Subjective Subjective Interval history: patient reports some facial swelling, tele neuro consulted. MR head taken, pending read echo taken, pending read suspect bells palsy, given L facial droop will start steroids and valacyclovir on cardiac diet. Exam Vital Signs Temp Pulse Resp BP Pulse Ox O2 Del Method 97.4 F 71 18 146/85 H 96 Room Air 07/24/25 08:00 07/24/25 08:00 07/24/25 08:00 07/24/25 08:00 07/24/25 08:00 07/24/25 04:00 Narrative Exam GENERAL APPEARANCE: AOx3. NAD, activity normal for age, well developed/ well nourished, no cyanosis, pallor, or diaphoresis. HEENT: Normocephalic atraumatic, no facial trauma, CARDIAC: Regular rate and rhythm, S1+S2 heard. No murmurs, rubs, or gallops noted RESPIRATORY: respiratory effort normal, speaks in full sentences, no tripod position, no accessory muscle use. Lungs clear to auscultation without rhonchi, wheezes, rales ABDOMINAL: NBS. Soft, ND/NT. No evidence of fluid wave. No pulsatile masses on exam, rebound tenderness, MUSCLES/EXTREMITIES: No abnormal range of motion, no swelling. DERM: Warm, pink and dry. No rashes, dermatoses, petechiae or lesions. NEUROLOGICAL: Speech is clear and appropriate. Normal level of consciousness. 5/5 strength in all extremities. L sided facial weakness , + forehead wrinkles. Sensation grossly intact. PSYCH: Normal mood and affect. Judgement/competence is appropriate Objective Labs 07/25/25 05:49 07/25/25 05:49 Labs: Laboratory Results - last 24 hr 07/23/25 07/23/25 07/24/25 19:05 19:35 05:27 WBC 7.2 5.4 RBC 4.25 3.88 L Hgb 13.0 11.8 L Hct 36.1 33.0 L MCV 85 85 MCH 30.6 30.4 MCHC 36.0 35.8 RDW Std Deviation 37.9 38.5 Plt Count 175 164 Neut % (Auto) 70 58 Lymph % (Auto) 24 33 [place] % (Auto) 5 8 Eos % (Auto) 0 1 Baso % (Auto) 0 1 Neut # (Auto) 5.1 3.1 Lymph # (Auto) 1.7 1.8 [place] # (Auto) 0.4 0.4 Eos # (Auto) 0.0 0.0 Baso # (Auto) 0.0 0.0 Immature Gran # (Auto) 0.01 H 0.01 H Absolute Nucleated RBC 0.00 0.00 Immature Gran % 0 0 Nucleated RBC % 0 0 PT 10.0 INR 0.9 APTT 25.6 Sodium 141 146 H Potassium 3.4 2.9 L D Chloride 102 106 Carbon Dioxide 28.8 29.3 Anion Gap 10 11 BUN 8 L 7 L Creatinine 0.9 0.8 Estim Creat Clear Calc Not Performed. Not Performed. eGFR > 60 > 60 BUN/Creatinine Ratio 9 L 9 L Glucose [address] Glu mg/dL 137 H Hemoglobin A1c 6.4 H Calculated Osmolality 284 290 Calcium 10.4 9.1 Corrected Calcium 10.4 H Magnesium 1.7 Total Bilirubin 0.3 Direct Bilirubin < 0.1 AST 36 H ALT 28 Alkaline Phosphatase 67 Troponin I < 0.020 B-Natriuretic Peptide 43 Total Protein 7.2 Albumin 4.7 Globulin 2.5 Albumin/Globulin Ratio 1.9 Triglycerides 187 H Cholesterol 124 L LDL Cholesterol, Calc 54 HDL Cholesterol 33 L Cholesterol/HDL Ratio 3.8 TSH 1.67 Ur Collection Type Clean Catch Urine Color Colorless A Urine Clarity Clear Urine pH 6.5 Ur Specific [place] 1.025 Urine Protein Negative Urine Glucose (UA) Negative Urine Ketones Negative Urine Blood Negative Urine Nitrite Negative Urine Bilirubin Negative Urine Urobilinogen (Auto) Negative Ur Leukocyte Esterase Negative Urine RBC 3 Urine WBC < 1 Ur Squamous Epith Cells < 1 Urine Bacteria None Ur Culture Indicated? Not Indicated Urine Opiates Screen Negative Urine Fentanyl Screen Negative Ur Barbiturates Screen Negative U Amphetamin/Meth Scrn Negative U Benzodiazepines Scrn Negative U Cocaine Metab Screen Negative U Marijuana (THC) Screen Negative Ethyl Alcohol < 3.0 Quality Measures Quality Measures VTE prophylaxis Assessment & Plan Assessment Current Active Medications: Generic Name Dose Route Start Last Admin Trade Name Freq PRN Reason Stop Dose Admin Acetaminophen 650 mg 07/23/25 21:15 Acetaminophen 325 Mg Tablet PO 08/22/25 21:14 Q6H PRN Fever >101.5 Artificial Tears 0 drop 07/23/25 23:09 Artificial Tears 225 Drop/15 Ml Btl BOTH EYES 08/22/25 23:08 Q4HR PRN TO KEEP EYES MOIST Aspirin 81 mg 07/24/25 09:00 07/24/25 08:59 Aspirin Ec 81 Mg Tabec PO 08/23/25 08:59 Not Given QDAY CARISSA Clopidogrel Bisulfate 75 mg 07/24/25 09:00 07/24/25 08:59 Clopidogrel Bisulfate 75 Mg Tablet PO 08/23/25 08:59 Not Given QDAY CARISSA Enoxaparin Sodium 40 mg 07/24/25 09:00 07/24/25 08:59 Enoxaparin Sod Inj 40 Mg/0.4 Ml Syringe SC 08/07/25 08:59 Not Given QDAY CARISSA Hydralazine HCl 10 mg 07/23/25 21:19 07/23/25 23:51 Hydralazine Inj 20 Mg/Ml Vial IVP 08/22/25 21:59 10 mg Q2HR PRN Administration SBP>170 or DBP>100 Sodium Chloride 1,000 mls @ 100 mls/hr 07/23/25 19:00 07/24/25 05:19 Ns IV 08/22/25 18:59 100 mls/hr Q10H CARISSA Administration Labetalol HCl 10 mg 07/23/25 19:00 Labetalol Inj 5 Mg/Ml Vial 4 Ml IVP Q15M PRN hypertension Protocol Lorazepam 1 mg 07/23/25 21:57 Lorazepam 0.5 Mg Tablet PO 07/28/25 21:56 X1 PRN Before MRI Ondansetron HCl 4 mg 07/23/25 19:00 Ondansetron Inj 2 Mg/Ml Inj 2 Ml IVP 08/22/25 18:59 Q4HR PRN NAUSEA OR VOMITING Pantoprazole Sodium 40 mg 07/24/25 09:00 07/24/25 08:59 Pantoprazole Inj 40 Mg Vial IVP 08/23/25 08:59 Not Given QDAY CARISSA Plan Ms Healy is a 64 y/o female with Hx of Hypercholesterolemia, HTN, and Asthma presents with severe headache, right-sided facial droop, and chest pain x approximately 24 hours. Admitted per tele neuro CVA rule out #L Facial hemiplegia #suspect [place] Palsy ddx stroke, migraine, bells palsy Last known normal greater than 1 day before admission. Reported dizziness, diplopia, blurry vision and extremity numbness as well as facial droop. On physical exam 5/5 strength in all extremities. L sided facial droop, + forehead wrinkles. Sensation grossly intact. R foot numbness which has sense resolved. Plan: Per tele neuro -continue dual antiplatelet therapy for 21 days with aspirin 81 mg daily and plavix 75 mg daily for 21 days followed by antiplatelet monotherapy therapy thereafter (unless an indication for anticoagulation therapy identified) -As symptoms have been present for >24 hours, there is no need for permissive hypertension so recommend goal normotension with SBP <180. -MRI brain taken, pending read -echo, pending read -Eye patch or lubricating eye drops for relief Plan: - ASCVD score:21.7-35.2%Risk of cardiovascular event (coronary or stroke or non-fatal RI or stroke) in next 10 years., high intensity statin recommended - Neuro consulted, recs appreciated, consider d/c plavix if neuro recs change after mr brain read results. - Physical therapy referral:ambulates without assisting devices. - ECHO w/ bubble study:pending read - TSH:wnl - Lipid panel: triglycerides elevated 187, cholesterol 124, HDL 33, - A1C:6.4 - Hydralazine inj 10mg IVP Q2HR - Atorvastatin 40 mg HS - Valacyclovir 1000mg TID for 1 week (07/24- 07/31) - Prednisone 60 mg PO qd for 5 days (07/24- 07/28) with taper 07/29 Prednisone 50 mg 07/30 Prednisone 40 mg 07/31 Prednisone 30 mg 08/01 Prednisone 20 mg 08/02 Prednisone 10 mg (Last day of taper) - Bedside glucose checks q6hr: Consider initiation of long acting insulin to mitigate hyperglycemia from steroids. - ISS, step 1 Hypertensive urgency vs emergency - resolved Plan - CTM blood pressure Prediabetes A1c 6.4 - consider metformin outpatient - ISS for steroids, see bells palsy above. HLD Plan continue atorvastatin 40 HS Normocytic Anemia presented with Hgb 13-->11.8 Plan - CTM daily cbc Hypokalemia K 2.9, Replete as indicated - follow up 3pm renal panel. Health Maintenance: Code status: FULL- confirmed to day that patient is full code. DVT prophylaxis: Lovenox GI prophylaxis: protonix 40 IV qd Diet: cardiac diet [place]: None Lines: PIV Supplemental O2: NC Disposition: Tele for stroke r/o, pending in house neuro recs. Plan discussed with my attending Dr. Sulema Denney MD PGY1 Attending Provider Attestation/Addendum I have seen and examined the patient. I was physically present for the freeman portions of the services provided including history, physical exam, diagnosis, treatment plans and orders. I agree with assessment and plan of care as documented by residents. Patient is a 64 years old female With past medical history of hypercholesterolemia, hypertension, asthma who presented to the ED with complaint of severe headache, right-sided facial droop and chest pain. She was admitted overnight for management of facial palsy and rule out stroke. At the bedside this morning, patient appears comfortable and denies any new complaints. Continues to have sided facial droop. Arms and legs strength, sensation are within normal limits. Patient underwent brain MRI, negative for acute stroke but shows concerning finding for demyelinating disease. Send continues to be on dual antiplatelet and statin. Neurology following closely, appreciate recommendations. 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 Patient is also pending echocardiogram and physical therapy evaluation. Even though this this note was carefully revised there may still be minor errors in stock preparation supervisor due to voice recognition software. Sharon Leone MD
--- NOTE | 2025-07-24 10:27 | PD.TNEUROPRO ---
Tele Neuro Progress Note Progress Note Date 07/24/25 [facility] TeleNeurology Consult Services Routine Consult Follow-Up Patient Name:???Carlene Healy Date of :???1960 Identification Number:??? Date of Service:???07/24/2025 10:19:55 Diagnosis?R29.810 - Facial numbness/ Facial weakness Impression Facial asymmetry - Somewhat unusual patient feels that her right face is swollen, I cannot remarkably appreciate swelling but it does appear that she has subtle weakness on the left lower face maybe some in the upper, May potentially be her baseline as the patient does not exhibit symptoms in the left side CT head without acute findings CT angio head and neck without acute findings Pending MRI of the brain and echo Given reported facial swelling primary team to evaluate for possible oropharyngeal etiology to her symptoms Neurology will continue to peripherally follow for above studies Subjective Patient doing well. Symptoms remain stable. She feels her face is swollen on the right side. She feels like something is in her ear on the right. No acute complaints. ? Examination BP(146/85), Neuro Exam: General:?Alert,Awake, Oriented to Time, Place, Person Speech:?Fluent: Language:?Intact: Face:?Facial Droop:?Left Subtle left facial droop with asymmetry upon exaggerated smile, patient does not feel that she is having symptoms on her left side, may have very subtle weakness of the left upper face as well Facial Sensation:?Intact: Extraocular Movements:?Intact: Motor Exam:?No Drift: Sensation:?Reduced:?RLE chronic Coordination:?Intact: ? This consult was conducted in real time using interactive audio and video technology. Patient was informed of the technology being used for this visit and agreed to proceed. Patient located in hospital and provider located at home/office setting. Telehealth Neurology consultation was provided. I spent 35 minutes providing telehealth care. This includes time spent for face to face visit via telemedicine, review of medical records, imaging studies and discussion of findings with providers, the patient and/or family. Dr Tamar Patel [facility] For Inpatient follow-up with [facility] physician please call [facility] at . As we are not an outpatient service for any post hospital discharge needs please contact the hospital for assistance. If you have any questions for the [facility] physicians or need to reconsult for clinical or diagnostic changes please contact us via [facility] at Signature :?Tamar Bradshawdann Most Recent Vital Signs Last Vital Signs Temp 97.4 F 07/24/25 08:00 Pulse 71 07/24/25 08:00 Resp 18 07/24/25 08:00 BP 146/85 H 07/24/25 08:00 Pulse Ox 96 07/24/25 08:00 O2 Del Method Room Air 07/24/25 04:00 Laboratory-Coagulation Panel PT 10.0 Seconds (9.0-12.2) 07/23/25 19:05 INR 0.9 (0.9-1.3) 07/23/25 19:05 APTT 25.6 Seconds (22.0-36.0) 07/23/25 19:05
--- NOTE | 2025-07-24 10:42 | PC.SS ---
Patient is alert/oriented. Patient is independent with ADLs. Patient was admitted for a CVA workup. [place] speaking only. SS spoke to daughter, Dorothy, for a brief history of patient. Prior to hospitalization patient was independent with ADl's. No DME. Patient's drived her to appointments. Patient was residing with her daughter and her . Patient PCP: Dr. Butler at [facility] in [place]. Last appt. was on the 21 of July. Pharmacy: [facility]. Discharge plan is to return home. D/c address: [facility], [facility] medical decision maker: Dorothy Girard, daughter,
--- NOTE | 2025-07-24 13:05 | PC.PT ---
PT eval only. Patient is I with transfers and ambulation without AD.
[2025-07-24 15:43] LABS: Albumin, Serum 4.2 gm/dL (3.4-4.8); Anion Gap 10 (7-16); BUN/Creatinine Ratio 8 Ratio (12-20); Blood Urea Nitrogen 6 mg/dL (9-23); Calcium 9.1 mg/dL (8.3-10.6); Calcium (Corrected) 9.1 mg/dL (8.5-10.1); Carbon Dioxide 28.4 mMol/L (20.0-31.0); Chloride 107 mMol/L (98-107); Creatinine (Component) 0.8 mg/dL (0.6-1.3); Glucose 163 mg/dL (74-106); Osmolality,Calculated 290 (275-295); Phosphorous 2.8 mg/dL (2.4-5.1); Potassium 3.6 mMol/L (3.4-5.1); Sodium 145 mMol/L (136-145); eGFR > 60 See Note
[2025-07-24] MEDS: valACYclovir 500 MG TABLET (NON-FORMULARY) 1000 MG PO ×2 (17:56→22:45)
[2025-07-24] MEDS: ATORVASTATIN CALCIUM 10 MG TABLET 40 MG PO (20:51)
[2025-07-25] VITALS (7 sets, daily range): BP systolic 141–153; BP diastolic 83–91; PULSE 70–89; RESP 14–97; TEMP 36.1–36.2; O2SAT 96–97
[2025-07-25] MEDS: INSULIN LISPRO (AdmeLOG) 1 UNIT/0.01 ML UNIT SC ×2 (00:22→08:01)
[2025-07-25] MEDS: SODIUM CHLORIDE 0.9% 1000 ML 1,000 ML 100 ML IV (04:28)
[2025-07-25] MEDS: valACYclovir 500 MG TABLET (NON-FORMULARY) 1000 MG PO (05:47)
[2025-07-25 06:27] LABS: Basophils # (Auto) 0.0 Thou/mm3 (0.0-0.2); Basophils % (Auto) 0 % (0-2.5); Eosinophils # (Auto) 0.0 Thou/mm3 (0.0-0.5); Eosinophils % (Auto) 0 % (0-10); Hematocrit 35.7 % (36.0-46.0); Hemoglobin 12.5 g/dL (12.0-16.0); Immature Granulocytes Auto 0.03 Thou/mm3 (0.00-0.00); Lymphocytes # (Auto) 0.7 Thou/mm3 (1.0-4.8); Lymphocytes % (Auto) 11 % (10-50); Mean Corpuscular HGB Conc 35.0 g/dl (31.0-37.0); Mean Corpuscular Hemoglobin 30.7 pg (25.0-35.0); Mean Corpuscular Volume 88 fL (80-100); Monocytes # (Auto) 0.1 Thou/mm3 (0.0-0.8); Monocytes % (Auto) 1 % (0-12); Neutrophils # (Auto) 6.1 Thou/mm3 (1.8-7.7); Neutrophils % (Auto) 88 % (37-80); Nucleated Red Blood Cell # 0.00 Thou/mm3 (0.00-0.00); Nucleated Red Blood Cell % 0 /100 WBC (0); Platelet Count 170 Thou/mm3 (140-440); RDW Standard Deviation 39.6 fL (36.4-46.3); Red Blood Count 4.07 Miln/mm3 (4.00-5.20); White Blood Count 6.9 Thou/mm3 (3.6-11.0)
[2025-07-25 06:53] LABS: Anion Gap 10 (7-16); BUN/Creatinine Ratio 11 Ratio (12-20); Blood Urea Nitrogen 8 mg/dL (9-23); Calcium 9.8 mg/dL (8.3-10.6); Carbon Dioxide 26.6 mMol/L (20.0-31.0); Chloride 106 mMol/L (98-107); Creatinine (Component) 0.7 mg/dL (0.6-1.3); Glucose 182 mg/dL (74-106); Osmolality,Calculated 288 (275-295); Potassium 3.6 mMol/L (3.4-5.1); Sodium 143 mMol/L (136-145); eGFR > 60 See Note
[2025-07-25] MEDS: CLOPIDOGREL BISULFATE 75 MG TABLET PO (08:02)
[2025-07-25] MEDS: ENOXAPARIN SOD INJ 40 MG/0.4 ML SYRINGE SC (08:02)
[2025-07-25] MEDS: ASPIRIN EC 81 MG TABEC PO (08:02)
--- NOTE | 2025-07-25 08:29 | PD.RESPRO ---
Documentation for date of: 07/25/25 Exam Vital Signs Temp Pulse Resp BP Pulse Ox O2 Del Method 97.0 F 83 19 147/86 H 96 Room Air 07/25/25 07:41 07/25/25 07:41 07/25/25 07:41 07/25/25 07:41 07/25/25 07:41 07/25/25 07:41 Narrative Exam General: No acute distress, well nourished Eye: PERRL, EOMI, normal conjunctiva, no scleral icterus HENT: Normocephalic, atraumatic, normal hearing, moist oral mucosa Neck: Supple, non-tender, no JVD, no lymphadenopathy Lungs: Clear to auscultation bilaterally, non-labored respirations, symmetric chest rise, no use of accessory muscles Heart: Normal S1 and S2, no S3 or S4 appreciated. Normal rate and regular rhythm, no murmurs, rubs gallops, or edema. Peripheral pulses intact bilaterally, capillary refill brisk distally Abdomen: Soft, non-tender, non-distended, normal bowel sounds. No guarding or rebound tenderness. Musculoskeletal: Normal range of motion and strength, no tenderness or swelling Skin: Skin is warm, dry, no rashes or lesions. Psychiatric: Cooperative, appropriate mood and affect Neurologic: Mental status: Orientation: Oriented to person, place, time, and situation Communication: Patient is cooperative and can follow simple instructions Language: Speech fluent, normal rate and volume, comprehension intact Cranial nerves: CN II: Visual gonzalez intact CN III: Pupils equal, round, and reactive to light CN III, IV, : No gaze deviation, no nystagmus Horizontal pursuit: intact Vertical pursuit: intact Ptosis: none CN V: Facial sensation to light touch intact bilaterally at the forehead, cheeks, and jaw line CN VII: L sided lower facial droop CN VIII: Able to hear and respond to conversation at normal volume, intact to finger rub CN IX, X: Palate elevation symmetric, uvula midline CN XI: Head turn and shoulder shrug strong, symmetric bilaterally CN XII: Normal tongue protrusion without deviation, no fasciculations Motor: Normal bulk and tone No atrophy No abnormal movements or fasciculations Muscle strength: Shoulder abduction: R 5/5 L 5/5 Elbow flexion: R 5/5 L 5/5 Elbow extension: R 5/5 L 5/5 Hip flexion: R 5/5 L 5/5 Hip extension: R 5/5 L 5/5 Knee flexion: R 5/5 L 5/5 Knee extension: R 5/5 L 5/5 Sensory: RUE: Light touch intact LUE: Light touch intact RLE: Light touch intact LLE: Light touch intact Reflexes: Biceps (C5-6): R 2+ L 2+ Brachioradialis (C5-6): R 2+ L 2+ Triceps (C7-8): R 2+ L 2+ Patellae (L3-4): R 2+ L 2+ Achilles (S1-2):R 2+ L 2+ No clonus Plantar reflex downgoing bilaterally Cerebellum: RUE: No dysmetria (finger to nose), no dysdiadochokinesia (rapid alternating movements) LUE: No dysmetria (finger to nose), no dysdiadochokinesia (rapid alternating movements) RLE: No dysmetria (heel to santiago) LLE: No dysmetria (heel to santiago) Romberg: negative Gait: Normal stance, stride length, and arm swing Normal pivot turn without instability Objective Labs 07/25/25 05:49 07/25/25 05:49 Labs: Laboratory Results - last 24 hr 07/24/25 07/25/25 15:05 05:49 WBC 6.9 RBC 4.07 Hgb 12.5 Hct 35.7 L MCV 88 MCH 30.7 MCHC 35.0 RDW Std Deviation 39.6 Plt Count 170 Neut % (Auto) 88 H Lymph % (Auto) 11 [place] % (Auto) 1 Eos % (Auto) 0 Baso % (Auto) 0 Neut # (Auto) 6.1 Lymph # (Auto) 0.7 L [place] # (Auto) 0.1 Eos # (Auto) 0.0 Baso # (Auto) 0.0 Immature Gran # (Auto) 0.03 H Absolute Nucleated RBC 0.00 Immature Gran % 0 Nucleated RBC % 0 Sodium 145 143 Potassium 3.6 D 3.6 Chloride 107 106 Carbon Dioxide 28.4 26.6 Anion Gap 10 10 BUN 6 L 8 L Creatinine 0.8 0.7 Estim Creat Clear Calc Not Performed. Not Performed. eGFR > 60 > 60 BUN/Creatinine Ratio 8 L 11 L Glucose 163 H 182 H Calculated Osmolality 290 288 Calcium 9.1 9.8 Corrected Calcium 9.1 Phosphorus 2.8 Albumin 4.2 D Quality Measures Quality Measures VTE prophylaxis Assessment & Plan Assessment Current Active Medications: Generic Name Dose Route Start Last Admin Trade Name Sendy PRN Reason Stop Dose Admin Acetaminophen 650 mg 07/23/25 21:15 Acetaminophen 325 Mg Tablet PO 08/22/25 21:14 Q6H PRN Fever >101.5 Artificial Tears 0 drop 07/23/25 23:09 Artificial Tears 225 Drop/15 Ml Btl BOTH EYES 08/22/25 23:08 Q4HR PRN TO KEEP EYES MOIST Aspirin 81 mg 07/24/25 09:00 07/25/25 08:02 Aspirin Ec 81 Mg Tabec PO 08/23/25 08:59 81 mg QDAY CARISSA Administration Atorvastatin Calcium 40 mg 07/24/25 21:00 07/24/25 20:51 Atorvastatin Calcium 10 Mg Tablet PO 08/23/25 20:59 40 mg HS CARISSA Administration Protocol Clopidogrel Bisulfate 75 mg 07/24/25 09:00 07/25/25 08:02 Clopidogrel Bisulfate 75 Mg Tablet PO 08/23/25 08:59 75 mg QDAY CARISSA Administration Dextrose 25 ml 07/24/25 16:23 Dextrose 50%-Water Inj 50 Ml Syringe IV 08/23/25 16:22 Q15MIN PRN BG 50-70 responsive npo pt Dextrose 50 ml 07/24/25 16:23 Dextrose 50%-Water Inj 50 Ml Syringe IV 08/23/25 16:22 Q15MIN PRN BG <50 OR BG <70 & pt unresponsive Enoxaparin Sodium 40 mg 07/24/25 09:00 07/25/25 08:02 Enoxaparin Sod Inj 40 Mg/0.4 Ml Syringe SC 08/07/25 08:59 40 mg QDAY CARISSA Administration Glucagon 1 mg 07/24/25 16:23 Glucagon Inj 1 Mg Vial IM Q15MIN PRN BG <70, and no IV access Hydralazine HCl 10 mg 07/23/25 21:19 07/23/25 23:51 Hydralazine Inj 20 Mg/Ml Vial IVP 08/22/25 21:59 10 mg Q2HR PRN Administration SBP>170 or DBP>100 Sodium Chloride 1,000 mls @ 100 mls/hr 07/23/25 19:00 07/25/25 04:28 Ns IV 08/22/25 18:59 100 mls/hr Q10H CARISSA Administration Insulin Human Lispro 0 unit 07/25/25 07:30 07/25/25 08:01 Insulin Lispro (Admelog) 1 Unit/0.01 Ml Unit SC 08/24/25 07:29 2 unit ACHS CARISSA Administration Protocol Labetalol HCl 10 mg 07/23/25 19:00 Labetalol Inj 5 Mg/Ml Vial 4 Ml IVP Q15M PRN hypertension Protocol Lorazepam 1 mg 07/23/25 21:57 07/24/25 15:54 Lorazepam 0.5 Mg Tablet PO 07/28/25 21:56 1 mg X1 PRN Administration Before MRI Ondansetron HCl 4 mg 07/23/25 19:00 Ondansetron Inj 2 Mg/Ml Inj 2 Ml IVP 08/22/25 18:59 Q4HR PRN NAUSEA OR VOMITING Pantoprazole Sodium 40 mg 07/24/25 09:00 07/25/25 08:03 Pantoprazole Inj 40 Mg Vial IVP 08/23/25 08:59 40 mg QDAY CARISSA Administration Prednisone 60 mg 07/24/25 16:00 07/25/25 08:02 Prednisone 20 Mg Tablet PO 07/28/25 15:59 60 mg QDAY CARISSA Administration Prednisone 40 mg/ Prednisone 50 mg 07/29/25 09:00 10 mg PO 07/29/25 09:01 X1 ONE Prednisone 40 mg 07/30/25 09:00 Prednisone 20 Mg Tablet PO 07/30/25 09:01 X1 ONE Prednisone 20 mg/ Prednisone 30 mg 07/31/25 09:00 10 mg PO 07/31/25 09:01 X1 ONE Prednisone 20 mg 08/01/25 16:15 Prednisone 20 Mg Tablet PO 08/01/25 16:16 X1 ONE Prednisone 10 mg 08/02/25 16:15 Prednisone 5 Mg Tablet PO 08/02/25 16:16 X1 ONE Valacyclovir HCl 1,000 mg 07/24/25 16:15 07/25/25 05:47 Valacyclovir 500 Mg Tablet (Non-Formulary) PO 07/31/25 16:14 1,000 mg TID CARISSA Administration Plan Ms Healy is a 64 y/o female with Hx of Hypercholesterolemia, HTN, and Asthma presents with severe headache, right-sided facial droop, and chest pain x approximately 24 hours. Admitted per tele neuro CVA rule out #L Facial hemiplegia #suspect [place] Palsy ddx stroke, migraine, bells palsy Last known normal greater than 1 day before admission. Reported dizziness, diplopia, blurry vision and extremity numbness as well as facial droop. On physical exam 5/5 strength in all extremities. L sided facial droop, + forehead wrinkles. Sensation grossly intact. R foot numbness which has sense resolved. TSH: wnl Lipid panel: triglycerides elevated 187, cholesterol 124, HDL 33, A1C:6.4 ASCVD score:21.7-35.2%Risk of cardiovascular event (coronary or stroke or non-fatal RI or stroke) in next 10 years, high intensity statin recommended Plan: - Consulted tele neuro, appreciate recs - DAPT - d/c per neuro recs - Atorvastatin 40 mg QHS - As symptoms have been present for >24 hours, there is no need for permissive hypertension so recommend goal normotension with SBP <180. - Eye patch or lubricating eye drops for relief - Physical therapy referral:ambulates without assisting devices. - ECHO w/ bubble study: pending read - Hydralazine inj 10mg IVP Q2HR - Valacyclovir 1000mg TID for 1 week (07/24- 07/31) - Prednisone 60 mg PO qd for 5 days (07/24- 07/28) with taper 07/29 Prednisone 50 mg 07/30 Prednisone 40 mg 07/31 Prednisone 30 mg 08/01 Prednisone 20 mg 08/02 Prednisone 10 mg (Last day of taper) - Bedside glucose checks q6hr: Consider initiation of long acting insulin to mitigate hyperglycemia from steroids. - ISS, step 1 #Hypertensive urgency vs emergency - resolved Plan - CTM blood pressure #Prediabetes A1c 6.4 Plan: - Counseled pt on diet and exercise for management - consider metformin outpatient - ISS for steroids, see bells palsy above #HLD Home med: Simvastatin 40 mg PO daily Plan - continue atorvastatin 40 HS #Normocytic Anemia presented with Hgb 13-->11.8 Plan - CTM daily cbc #Hypokalemia Plan: - CTM with daily CMP - Replete as needed Health Maintenance: Code status: FULL DVT prophylaxis: Lovenox GI prophylaxis: protonix 40 IV qd Diet: cardiac diet Galvan: None Lines: PIV Supplemental O2: NC Disposition: Pending echo read Plan discussed with Dr. Jose Buckner and Dr. Sulema Giles MD PGY1
--- NOTE | 2025-07-25 09:41 | PD.TNEUROPRO ---
Tele Neuro Progress Note Progress Note Date 07/25/25 [facility] TeleNeurology Consult Services Routine Consult Follow-Up Patient Name:???Carlene Healy Date of :???1960 Identification Number:??? Date of Service:???07/25/2025 09:39:44 Diagnosis?R29.810 - Facial numbness/ Facial weakness Impression Facial asymmetry, favoring Carrillo;s Palsy - Somewhat unusual patient feels that her right face is swollen, I cannot remarkably appreciate swelling but it does appear that she has subtle weakness on the left lower face maybe some in the upper, May potentially be her baseline as the patient does not exhibit symptoms in the left side - Feels like something is in her right ear, denies changes in taste or hearing CT head without acute findings CT angio head and neck without acute findings MRI of the brain and MRA head and neck without acute findings, noted areas of punctate foci in the white matter differential including demyelinating and chronic microvascular white matter changes Given reported facial swelling primary team to evaluate for possible oropharyngeal etiology to her symptoms Primary team 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 I feel that this is reasonable at this time. Ensure eye care while without complete closure with eye patch when sleeping and eye drops q1 hr prn while awake. If there is incomplete facial recovery 3 months after initial symptom onset, patient may need referral to ophthalmology +/- facial document control specialist Patient can resume home medications if was not taking aspirin or Plavix can be discontinued as the patient did not have a stroke. Does have white matter disease on MRI of the brain likely secondary to hypertension and hyperlipidemia. Primary medical prevention per PCP. Neurology will sign off Subjective Patient doing well. Symptoms have improved. No acute complaints. Imaging I personally reviewed MRI images. Please note, remote physician workstations do not possess the same resolution, calibration, or diagnostic capabilities as hospital-based radiology reading stations. ? Examination Neuro Exam: General:?Alert,Awake, Oriented to Time, Place, Person Speech:?Fluent: Language:?Intact: Face:?Facial Droop:?Left Subtle left facial droop with asymmetry upon exaggerated smile, patient does not feel that she is having symptoms on her left side, may have very subtle weakness of the left upper face as well Facial Sensation:?Intact: Extraocular Movements:?Intact: Motor Exam:?No Drift: Sensation:?chronic ? This consult was conducted in real time using interactive audio and video technology. Patient was informed of the technology being used for this visit and agreed to proceed. Patient located in hospital and provider located at home/office setting. Telehealth Neurology consultation was provided. I spent 35 minutes providing telehealth care. This includes time spent for face to face visit via telemedicine, review of medical records, imaging studies and discussion of findings with providers, the patient and/or family. Dr Tamar Patel [facility] For Inpatient follow-up with [facility] physician please call [facility] at . As we are not an outpatient service for any post hospital discharge needs please contact the hospital for assistance. If you have any questions for the [facility] physicians or need to reconsult for clinical or diagnostic changes please contact us via [facility] at Signature :?Tamar Patel Most Recent Vital Signs Last Vital Signs Temp 97.0 F 07/25/25 07:41 Pulse 77 07/25/25 09:33 Resp 18 07/25/25 09:33 BP 147/86 H 07/25/25 07:41 Pulse Ox 96 07/25/25 07:41 O2 Del Method Room Air 07/25/25 07:41 Laboratory-Coagulation Panel PT 10.0 Seconds (9.0-12.2) 07/23/25 19:05 INR 0.9 (0.9-1.3) 07/23/25 19:05 APTT 25.6 Seconds (22.0-36.0) 07/23/25 19:05
--- NOTE | 2025-07-25 11:26 | ESDS_ITS ---
Planned Discharge Date 07/25/25 DS: Providers Provider Date of admission: 07/23/25 21:15 Primary care physician: Twin Vallejo PA-C Admitting Provider: Mari Bryant MD Attending Provider on Admission: Mari Bryant MD Consults: 07/23/25 19:00 Consult to Neurology / Tele-Neurology Routine Comment: Consulting Provider: [facility] 07/23/25 21:20 Consult to Neurology / Tele-Neurology Routine Comment: Consulting Provider: Aren Gilbert 07/23/25 21:22 Referral Physical Therapy Routine Comment: Physician Instructions: Referral Speech Therapy Routine Comment: Attending Provider on DC: Dr. Leone Discharging Provider: Ledy Giles MD DS: Diagnosis Problem List Completed Was Problem List Reviewed/Reconciled?: Yes Hospital Course Hospital Course Hospital course: Hospital Course Ms. Concepcion is a 64 y/o female with PMH HTN, hypercholesterolemia, prediabetes, and asthma who presented to the ED on 07/23 with anterior and posterior band-like headache, right sided lower facial droop, and chest pain x 1 day. Admitted for stroke workup. In the ED, BP 2-5/90 with HR 67. Afebrile. Physical exam significant for right sided lower facial droop, no other focal neuro deficits appreciated. Lipid panel: triglycerides elevated 187, cholesterol 124, HDL 33. A1C 6.4. Troponin negative. Head CT negative for acute hemorrhage, mass effect, midline shift. CTA head/neck showed no LVO. 50% stenosis proximal L vertebral artery. EKG NSR, HR 70, QTc 440. MRI showed no acute infarct, chronic microvascular changes. No tPA given as patient outside therapeutic window. Tele neuro initially recommended loading Aspirin and Plavix then DAPT x 21 days, but once MRI showed no acute infarct recommended just continuing home dose statin. Pending echocardiogram with bubble study final read. 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 Also given eye patch when sleeping and eye drops q1 hr prn while awake. Patient to follow up with PCP. Patient hemodynamically stable. Labs reviewed and stable. Patient stable and medically cleared for discharge. Diagnoses #L Facial hemiplegia #c/f Paradise Palsy #Hypertensive urgency vs emergency - resolved #Prediabetes #Hyperlipidemia #Normocytic anemia #Electrolyte disturbances - resolved #Hypokalemia - resolved Discharge Instructions - Follow up with PCP within 1 week of discharge, if you do not have a primary care physician you can come see us at the [facility] by calling [phone] -Take Valacyclovir 1000 mg three times daily for 1 week (07/24- 07/31). - Take Prednisone 60 mg daily for 3 days (07/26- 07/28). - On 07/29 take Prednisone 50 mg. - On 07/30 take Prednisone 40 mg. - On 07/31 take Prednisone 30 mg. - On 08/01 take Prednisone 20 mg. - On 08/02 take Prednisone 10 mg (Last day of taper), - Continue rest of medications as previously prescribed, - Return to the ED or call EMS if symptoms return and/or worsen. Ledy Giles MD PGY1 Time Spent with Patient Time attestation: Total time spent providing and/or coordinating discharge services: 35 minutes Time spent: Greater than 30 minutes Exam Vital Signs Temp Pulse Resp BP Pulse Ox O2 Del Method 97.0 F 77 18 147/86 H 96 Room Air 07/25/25 07:41 07/25/25 09:33 07/25/25 09:33 07/25/25 07:41 07/25/25 07:41 07/25/25 07:41 Narrative Exam General: No acute distress, well nourished, obese Eye: PERRL, EOMI, normal conjunctiva, no scleral icterus HENT: Normocephalic, atraumatic, normal hearing, moist oral mucosa Neck: Supple, non-tender, no JVD, no lymphadenopathy Lungs: Clear to auscultation bilaterally, non-labored respirations, symmetric chest rise, no use of accessory muscles Heart: Normal S1 and S2, no S3 or S4 appreciated. Normal rate and regular rhythm, no murmurs, rubs gallops, or edema. Peripheral pulses intact bilaterally, capillary refill brisk distally Abdomen: Soft, non-tender, non-distended, normal bowel sounds. No guarding or rebound tenderness. Musculoskeletal: Normal range of motion and strength, no tenderness or swelling Skin: Skin is warm, dry, no rashes or lesions. Psychiatric: Cooperative, appropriate mood and affect Neurologic: Mental status: Orientation: Oriented to person, place, time, and situation Communication: Patient is cooperative and can follow simple instructions Language: Speech fluent, normal rate and volume, comprehension intact Cranial nerves: CN II: Visual gonzalez intact CN III: Pupils equal, round, and reactive to light CN III, IV, : No gaze deviation, no nystagmus Horizontal pursuit: intact Vertical pursuit: intact Ptosis: none CN V: Facial sensation to light touch intact bilaterally at the forehead, cheeks, and jaw line CN VII: Right sided lower facial droop CN VIII: Able to hear and respond to conversation at normal volume, intact to finger rub CN IX, X: Palate elevation symmetric, uvula midline CN XI: Head turn and shoulder shrug strong, symmetric bilaterally CN XII: Normal tongue protrusion without deviation, no fasciculations Motor: Normal bulk and tone No atrophy No abnormal movements or fasciculations Muscle strength: Shoulder abduction: R 5/5 L 5/5 Elbow flexion: R 5/5 L 5/5 Elbow extension: R 5/5 L 5/5 Hip flexion: R 5/5 L 5/5 Hip extension: R 5/5 L 5/5 Knee flexion: R 5/5 L 5/5 Knee extension: R 5/5 L 5/5 Sensory: RUE: Light touch intact LUE: Light touch intact RLE: Light touch intact LLE: Light touch intact Cerebellum: RUE: No dysmetria (finger to nose) LUE: No dysmetria (finger to nose) Gait: Normal stance, stride length, and arm swing Normal pivot turn without instability Discharge Plan Plan Patient Disposition: HOME (Self Care) Patient condition on transfer: Stable Care Plan Goals: - Moises seguimiento con schroeder m?dico de cabecera dentro de la semana posterior al leena. Si no tiene un m?dico de cabecera, puede visitarnos en la [facility] llamando al [phone]. - [place] valaciclovir 1000 mg french veces al d?a jeff 1 semana (del 24/07 al 01/05). - [place] prednisona 60 mg al d?a jeff 3 d?as (del 26/07 al 10/08). - El 11/05, tome prednisona 50 mg. - El 12/06, tome prednisona 40 mg. - El 01/05, tome prednisona 30 mg. - El 02/05, tome prednisona 20 mg. - El 03/07, tome prednisona 10 mg (?ltimo d?a de reducci?n gradual). - Contin?e con el alvarado de la medicaci?n seg?n lo prescrito previamente. - Regrese a urgencias o llame al servicio de emergencias m?dicas si los s?ntomas reaparecen o empeoran. Khmer: - Follow up with PCP within 1 week of discharge, if you do not have a primary care physician you can come see us at the [facility] by calling [phone] - Take Valacyclovir 1000 mg three times daily for 1 week (07/24- 07/31). - Take Prednisone 60 mg daily for 3 days (07/26- 07/28). - On 07/29 take Prednisone 50 mg. - On 07/30 take Prednisone 40 mg. - On 07/31 take Prednisone 30 mg. - On 08/01 take Prednisone 20 mg. - On 08/02 take Prednisone 10 mg (Last day of taper), - Continue rest of medications as previously prescribed, - Return to the ED or call EMS if symptoms return and/or worsen. Prescriptions/Referrals Prescriptions/Med Rec: New prednisone 10 mg tablet See Taper PO QDAY Qty: 33 0RF Taper: Prednisone Taper 60 mg DAILY for 3 Days and 0 Hour 50 mg DAILY for 1 Day and 0 Hour 40 mg DAILY for 1 Day and 0 Hour 30 mg DAILY for 1 Day and 0 Hour 20 mg DAILY for 1 Day and 0 Hour 10 mg DAILY for 1 Day and 0 Hour valacyclovir 1 gram tablet 1,000 mg PO TID 6 Days Qty: 18 0RF Continued simvastatin 40 mg tablet 40 mg PO QDAY Patient Comments: TAKE 1 TABLET BY MOUTH ONCE DAILY IN THE EVENING Referrals: Twin Vallejo PA-C [Primary Care Provider] Patient/Caregiver Discharge Instructions Education Materials: Carrillo's Palsy Print Language: Bulgarian Stand Alone Forms: Shonda Award Info., Patient Portal Info Letter Discharge Order Discharge Orders: Discharge (Routine); Ordered 07/25/25 Ordered By: Zbigniew Buckner Quality Discharge Quality Measures VTE prophylaxis MD Attestestation MD Attestation I have seen and examined the patient. I was physically present for the freeman portions of the services provided including history, physical exam, diagnosis, treatment plans and orders. I agree with assessment and plan of care as documented by residents. Even though this this note was carefully revised there may still be minor errors in hot top liner helper due to voice recognition software. Sharon Leone MD
== END 2025-07-25 12:45 | disposition home or self-care (01) | DRG 48 ==
LOC: SERX 21:20 → SERHOLD 21:22 → S3NX 23:23
PROVIDERS: Admitting Provider Student in an Organized Health Care Education/Training Program; Emergency Provider Emergency Medicine; PCP Physician Assistant; Visit Provider Student in an Organized Health Care Education/Training Program
DX: G51.0 Bell's palsy (principal); I16.0 Hypertensive urgency; R73.03 Prediabetes; R29.810 Facial weakness; E78.00 Pure hypercholesterolemia, unspecified; I10 Essential (primary) hypertension; E87.6 Hypokalemia; D64.9 Anemia, unspecified; Z66 Do not resuscitate; Z79.02 Long term (current) use of antithrombotics/antiplatelets; Z79.82 Long term (current) use of aspirin; Z79.899 Other long term (current) drug therapy; Z90.49 Acquired absence of other specified parts of digestive tract
CPT/HCPCS: 36415; 70450; 70496; 70498; 70544; 71045; 80048; 80053; 80061; 80069; 80307; 80320; 81001; 82248; 83036; 83735; 83880; 84443; 84484; 84703; 85025; 85610; 85730; 92610; 93005; 93306; 96360; 97162; 99285; A4649; J0360; J1650; J1815; J2470; J7030; J7512; Q9967; A9270; G0480

== ENCOUNTER 2025-07-26 08:37 | Emergency (ER) | payer MEDICAID, SELFPAY ==
[2025-07-26 08:38] VITALS: BMI 28.3
[2025-07-26 08:43] VITALS: BP 185/91; PULSE 70; RESP 17; TEMP 36.8; O2SAT 96
--- NOTE | 2025-07-26 08:59 | XR_ITS ---
Examination: Forearm, left, 2 views. Technique: Forearm, AP, lateral 2 views Date and time of exam: July 26, 2025, 0911 hours INDICATIONS: Patient fell today with injury to the forearm, forearm pain FINDINGS: Acute comminuted fractures distal radial metaphysis, minimal volar angulation at the fracture site Elbow bones appear intact IMPRESSION: Acute comminuted fractures distal radial metaphysis
--- NOTE | 2025-07-26 08:59 | XR_ITS ---
Examination: Hand, left 2 views Technique: Hand AP, lateral 2 views Date and time of exam: July 26, 2025, 0910 hours INDICATIONS: Patient fell today with injury to the hand and wrist, hand pain wrist pain. FINDINGS: Acute comminuted fractures distal radial metaphysis, dorsal displacement of the distal fracture radial fragment and at least 10 mm Bones of the hand intact IMPRESSION: Acute comminuted fractures distal radial metaphysis
--- NOTE | 2025-07-26 09:01 | EDNOTE_ITS ---
Upper Extremity Injury RME/HPI General Chief Complaint: Hand/Wrist Problems Stated Complaint: SLIPPED & FALL L WRIST PAIN Time Seen by Provider: 07/26/25 08:41 Arrival date/time: 07/26/25 08:37 This is a 64-year-old female that comes into the emergency room with complaints of fall injuring her left forearm. Patient was recently discharged from the hospital and was diagnosed with Carrillo's palsy. Patient currently on valacyclovir. And also on a steroid taper. Patient states that she was taking blood pressure medication but they did not discharge her with blood pressure medication. It also seems that patient was also here for hypertensive emergency/urgency patient states she is confused about what medication she has been to be taking for her blood pressure. Patient's blood pressure is elevated upon arrival. Patient states that she slipped and fell because the floor was wet outside. Patient denies any other injuries other than her left arm. Related Data Home Medications ?Medication ?Instructions ?Recorded ?Confirmed simvastatin 40 mg tablet 40 mg PO QDAY 07/23/2507/23 Previous Rx's ?Medication ?Instructions ?Recorded prednisone 10 mg tablet See Taper PO QDAY #33 tabs 1 09/24/24 ibuprofen 800 mg tablet 800 mg PO Q6H PRN pain #14 t abs 07/26/25 Allergies Allergy/AdvReac Type Severity Reaction Status Date / Time No Known Allergies Allergy Verified 07/26/25 08:40 Review of Systems Review of Systems Systems Reviewed: All systems reviewed, normal except as documented Past Medical History Past Medical History CARDIAC: Positive Hypercholesterolemia and Hypertension RESPIRATORY: Positive Asthma ED Exam Narrative Physical exam: VITAL SIGNS: Reviewed. GENERAL APPEARANCE: Alert and interactive, follows commands, no acute distress HEAD AND FACE: Non-traumatic. ENT: PERRL, conjuctiva pink and clear, eyelid no trauma, Mucous membrane moist. NECK: Supple, nontender, no nuchal rigidity. CHEST: No tenderness, no crepitus, no paradoxical movement, no retractions. LUNGS: breathing even and unlabored HEART: Regular rate, cap refill less than 2 seconds ABDOMEN: Soft, nondistended, no guarding, nontender NEUROLOGICAL: Gross motor function intact sensory function intact, Appropriate for age. MUSCULOSKELETAL: low back nontender, full range of motion. EXTREMITIES: No redness no swelling no skin breakdown on bilateral foot and leg. Distal neurovascular status intact bilateral foot SKIN: Color pink, dry, deformity to left wrist, swelling, pain to palpaption, no snuffbox tenderness Course Quality Measures none Orders Category Date Time Status XR forearm LT 2V Stat Exams 07/26/25 08:59 Completed XR hand LT 2V Stat Exams 07/26/25 08:59 Completed Acetaminophen Tab [Tylenol ES Tab] Med 07/26/25 08:59 Discontinued 1,000 mg PO X1 ONE HYDROcodone*/APAP 5/325 [Lindsay 5/325] Med 07/26/25 10:55 Discontinued 1 tab PO X1 ONE Ibuprofen Tab [Motrin Tab] Med 07/26/25 08:59 Discontinued 800 mg PO X1 ONE Lisinopril [Prinivil] Med 07/26/25 10:55 Discontinued 20 mg PO X1 ONE Metoprolol Tartrate [Lopressor] Med 07/26/25 10:55 Discontinued 25 mg PO X1 ONE Ondansetron Odt [Zofran Odt] Med 07/26/25 10:55 Discontinued 4 mg PO X1 ONE Vital Signs Vital signs: Vital Signs Temperature 98.2 F 07/26/25 08:43 Pulse Rate 70 07/26/25 08:43 Respiratory Rate 17 07/26/25 08:43 Blood Pressure 185/91 H 07/26/25 08:43 Pulse Oximetry (%) 96 07/26/25 08:43 Oxygen Delivery Method Room Air 07/26/25 08:43 Extremity Injury MDM Narrative MDM Narrative:: forearm: FINDINGS: Acute comminuted fractures distal radial metaphysis, minimal volar angulation at the fracture site Elbow bones appear intact IMPRESSION: Acute comminuted fractures distal radial metaphysis hand: FINDINGS: Acute comminuted fractures distal radial metaphysis, dorsal displacement of the distal fracture radial fragment and at least 10 mm Bones of the hand intact IMPRESSION: Acute comminuted fractures distal radial metaphysis Today patient had xray. There was no acute fracture seen. Exam appeared unremarkable. I explained to patient at length that if there was continued pain to this area or worsened to come back to ED or see primary provider for more xrays or further testing such as CT scan or MRI. X rays are not perfect and sometimes serial films needed. Patient verbalized understanding. Patient states they will follow up with primary provider in 1-2 days or come back to ED if symptoms change or worsen. Patient given a CD. I spoke to patient at length that he she will need to see her primary doctor and be referred to an orthopedic surgeon. I discussed case with Dr. Aguero. Patient placed in a sugar-tong splint along with a sling. Patient verbalized understanding Patient data External records reviewed:: [facility] previous records Clinical information provided by:: patient Social determinants that could affect healthcare access:: none Patient has the following chronic illnesses:: see note How is presenting disease/condition affected by chronic disease/condition?: no chronic disease Evaluation data The following diagnostics were reviewed and interpreted by me:: radiology exam(s) Lab and/or radiology exams considered but not ordered:: none Interpretation Summary: see note Medications / Prescriptions Medications or Prescriptions considered but not ordered:: see note Medication administrations:: Medication Administration History Discontinued Medications Acetaminophen (Acetaminophen 500 Mg Tablet) 1,000 mg PO X1 ONE Stop: 07/26/25 09:00 Last Admin: 07/26/25 09:07 Dose: 1,000 mg Documented By: GM Hydrocodone Bitart/Acetaminophen (Hydrocodone/Apap 5/325 Tablet) 1 tab PO X1 ONE Stop: 07/26/25 10:56 Last Admin: 07/26/25 11:13 Dose: 1 tab Documented By: Ibuprofen (Ibuprofen Tab 400 Mg Tablet) 800 mg PO X1 ONE Stop: 07/26/25 09:00 Last Admin: 07/26/25 09:06 Dose: 800 mg Documented By: GM Lisinopril (Lisinopril 20 Mg Tablet) 20 mg PO X1 ONE Stop: 07/26/25 10:56 Last Admin: 07/26/25 11:13 Dose: 20 mg Documented By: Metoprolol Tartrate (Metoprolol Tartrate 25 Mg Tablet) 25 mg PO X1 ONE Stop: 07/26/25 10:56 Last Admin: 07/26/25 11:15 Dose: 25 mg Documented By: Ondansetron HCl (Ondansetron Odt 4 Mg Tabrap) 4 mg PO X1 ONE; Protocol Stop: 07/26/25 10:56 Last Admin: 07/26/25 11:15 Dose: 4 mg Documented By: see mar Consultations Consultation(s) initiated? (list below): No Diagnosis Upper Extremity Injury Differential Diagnosis: sprain and strain of wrist, fracture of wrist, fracture of hand and fracture of humerus Most likely diagnosis given after review of the tests above:: see note Admission Indicated Admission indicated?: not indicated Admission Request Was there a request for admission?: No Disposition Plan Disposition Plan: Discharge Discharge Attestation Discharge Attestation: The patient and all family members were given an opportunity to ask questions and understood the discharge instructions. Discharge instructions specifically effects, indications for sooner follow up or return to the emergency department, and the expected course of current diagnosis. Patient condition: Stable Discharge Plan Plan Patient Disposition: HOME (Self Care) Patient condition on transfer: Stable Prescriptions/Referrals Prescriptions/Med Rec: New ibuprofen 800 mg tablet 800 mg PO Q6H PRN (Reason: pain) Qty: 14 0RF No Action simvastatin 40 mg tablet 40 mg PO QDAY Patient Comments: TAKE 1 TABLET BY MOUTH ONCE DAILY IN THE EVENING prednisone 10 mg tablet See Taper PO QDAY Qty: 33 0RF Taper: Prednisone Taper 60 mg DAILY for 3 Days and 0 Hour 50 mg DAILY for 1 Day and 0 Hour 40 mg DAILY for 1 Day and 0 Hour 30 mg DAILY for 1 Day and 0 Hour 20 mg DAILY for 1 Day and 0 Hour 10 mg DAILY for 1 Day and 0 Hour Referrals: Ruben Ramírez MD [Primary Care Provider, Family Practice] - In 1 week Problem List Clinical Impression: Distal radial fracture Patient/Caregiver Discharge Instructions Discharge Activity: activity as tolerated Education Materials: ED Fracture, Upper Extremity Additional Instructions: Moises un geovanna con schroeder medico de cabecera en las proximas 24-48 horas. Regrese a la miguel a de emergencias si hay evidencia de que los signos o sintomas empeoran. Print Language: Belarusian Stand Alone Forms: Shonda Award Info., Patient Portal Info Letter TRUDY/JEN Supervising Physician TRUDY/JEN Supervising Physician: irene
[2025-07-26] MEDS: IBUPROFEN TAB 400 MG TABLET 800 MG PO (09:06)
[2025-07-26] MEDS: ACETAMINOPHEN 500 MG TABLET 1000 MG PO (09:07)
[2025-07-26 11:13] VITALS: BP 169/90; PULSE 61
[2025-07-26] MEDS: HYDROcodone/APAP 5/325 TABLET 1 TAB PO (11:13)
[2025-07-26 11:15] VITALS: BP 169/90; PULSE 61
[2025-07-26] MEDS: ONDANSETRON ODT 4 MG TABRAP PO (11:15)
[2025-07-26] MEDS: METOPROLOL TARTRATE 25 MG TABLET PO (11:15)
== END 2025-07-26 11:29 | disposition home or self-care (01) ==
PROVIDERS: Emergency Provider Emergency Medicine; PCP Family Medicine
DX: S52.592A Other fractures of lower end of left radius, initial encounter for closed fracture (principal); S69.92XA Unspecified injury of left wrist, hand and finger(s), initial encounter; W01.0XXA Fall on same level from slipping, tripping and stumbling without subsequent striking against object, initial encounter
CPT/HCPCS: 29125; 73090; 73120; 99283; A4565; Q0162; A9270

== ENCOUNTER 2025-08-14 12:40 | Emergency (ER) | payer MEDICAID, SELFPAY ==
[2025-08-14 13:21] VITALS: BP 169/92; PULSE 66; RESP 20; TEMP 36.7; O2SAT 98
--- NOTE | 2025-08-14 14:13 | EDNOTE_ITS ---
Upper Extremity Injury RME/HPI General Chief Complaint: Hand/Wrist Problems Stated Complaint: L WRIST CAST REMOVAL. UNABLE TO GET DONE BY ORTHO Time Seen by Provider: 08/14/25 13:00 Arrival date/time: 08/14/25 12:40 this is a 64-year-old female that comes into the emergency room with complaints of wanting the cast removed. Patient was seen here July 26, 2025 and had a Acute comminuted fractures distal radial metaphysis, dorsal displacement of the distal fracture radial fragment and at least 10 mm. Patient was put in a temporary splint and was told to follow-up with the primary doctor and get referred to an orthopedic surgeon. Patient states she has seen her primary doctor and she was referred to an orthopedic surgeon but according to patient he did not take her Medi-Nick. No new complaints.. Patient states she has been wearing the splint and hit her arm has been in the sling since. Related Data Home Medications ?Medication ?Instructions ?Recorded ?Confirmed simvastatin 40 mg tablet 40 mg PO QDAY 07/23/2507/23 Previous Rx's ?Medication ?Instructions ?Recorded prednisone 10 mg tablet See Taper PO QDAY #33 tabs 1 09/24/24 ibuprofen 800 mg tablet 800 mg PO Q6H PRN pain #14 t abs 07/26/25 Allergies Allergy/AdvReac Type Severity Reaction Status Date / Time No Known Allergies Allergy Verified 08/14/25 12:42 Review of Systems Review of Systems Systems Reviewed: All systems reviewed, normal except as documented Past Medical History Past Medical History CARDIAC: Positive Hypercholesterolemia and Hypertension RESPIRATORY: Positive Asthma ED Exam Narrative Physical exam: VITAL SIGNS: Reviewed. GENERAL APPEARANCE: Alert and interactive, follows commands, no acute distress HEAD AND FACE: Non-traumatic. ENT: PERRL, conjuctiva pink and clear, eyelid no trauma, Mucous membrane moist. NECK: Supple, nontender, no nuchal rigidity. CHEST: No tenderness, no crepitus, no paradoxical movement, no retractions. LUNGS: breathing even and unlabored HEART: Regular rate, cap refill less than 2 seconds ABDOMEN: Soft, nondistended NEUROLOGICAL: Gross motor function intact sensory function intact, Appropriate for age. MUSCULOSKELETAL: low back nontender, full range of motion. no midline tenderness, no meningismus, no step offs EXTREMITIES: No redness no swelling no skin breakdown on bilateral foot and leg. Distal neurovascular status intact bilateral foot, mild if any swelling to left wrist area some mild bruising to posterior wrist, sensation and movement intact SKIN: Color pink, dry, Course Quality Measures none Vital Signs Vital signs: Vital Signs Temperature 98.1 F 08/14/25 13:21 Pulse Rate 66 08/14/25 13:21 Respiratory Rate 20 08/14/25 13:21 Blood Pressure 169/92 H 08/14/25 13:21 Pulse Oximetry (%) 98 08/14/25 13:21 Oxygen Delivery Method Room Air 08/14/25 13:21 Extremity Injury MDM Narrative MDM Narrative:: PREVIOUS X RAYS DONE 07/26/25 forearm: FINDINGS: Acute comminuted fractures distal radial metaphysis, minimal volar angulation at the fracture site Elbow bones appear intact IMPRESSION: Acute comminuted fractures distal radial metaphysis hand: FINDINGS: Acute comminuted fractures distal radial metaphysis, dorsal displacement of the distal fracture radial fragment and at least 10 mm Bones of the hand intact IMPRESSION: Acute comminuted fractures distal radial metaphysis I spoke to patient at length that he she will need to see her primary doctor and be referred to an orthopedic surgeon. Patient states that she did see her primary doctor and they did refer her to an orthopedic surgeon but then when she went to the orthopedic surgeon she was told that he does not take Medi-Nick. I explained to patient that they need to send her to another orthopedic surgeon that does take Medi-Nick. Patient has no complaints of arm. I removed the old splint patient has not removed it since it was put on July 26, 2025. Sensation intact. No increased swelling mild bruising to the bottom of the wrist. No signs of compartment syndrome. patient placed in a NEW sugar-tong splint along with a sling. Patient verbalized understanding. Patient states that she will leave the emergency room and go to her doctor's office today Patient data External records reviewed:: [facility] previous records Clinical information provided by:: patient Social determinants that could affect healthcare access:: none Patient has the following chronic illnesses:: none How is presenting disease/condition affected by chronic disease/condition?: uneffected by Evaluation data The following diagnostics were reviewed and interpreted by me:: radiology exam(s) Lab and/or radiology exams considered but not ordered:: none Interpretation Summary: see note Medications / Prescriptions Medications or Prescriptions considered but not ordered:: note Medication administrations:: see note Consultations Consultation(s) initiated? (list below): No Diagnosis Upper Extremity Injury Differential Diagnosis: fracture of wrist, fracture of humerus and other (hand fracture) Most likely diagnosis given after review of the tests above:: see note Admission Indicated Admission indicated?: not indicated Admission Request Was there a request for admission?: No Disposition Plan Disposition Plan: Discharge Discharge Attestation Discharge Attestation: The patient and all family members were given an opportunity to ask questions and understood the discharge instructions. Discharge instructions specifically effects, indications for sooner follow up or return to the emergency department, and the expected course of current diagnosis. Patient condition: Stable Discharge Plan Plan Patient Disposition: HOME (Self Care) Patient condition on transfer: Stable Prescriptions/Referrals Prescriptions/Med Rec: No Action simvastatin 40 mg tablet 40 mg PO QDAY Patient Comments: TAKE 1 TABLET BY MOUTH ONCE DAILY IN THE EVENING prednisone 10 mg tablet See Taper PO QDAY Qty: 33 0RF Taper: Prednisone Taper 60 mg DAILY for 3 Days and 0 Hour 50 mg DAILY for 1 Day and 0 Hour 40 mg DAILY for 1 Day and 0 Hour 30 mg DAILY for 1 Day and 0 Hour 20 mg DAILY for 1 Day and 0 Hour 10 mg DAILY for 1 Day and 0 Hour ibuprofen 800 mg tablet 800 mg PO Q6H PRN (Reason: pain) Qty: 14 0RF Referrals: Ruben Ramírez MD [Primary Care Provider, Family Practice] - In 1 week Problem List Clinical Impression: Distal radial fracture Patient/Caregiver Discharge Instructions Discharge Activity: activity as tolerated Education Materials: ED Fracture, Upper Extremity Additional Instructions: Mioses un geovanna con schroeder medico de cabecera en las proximas 24-48 horas. Regrese a la miguel a de emergencias si hay evidencia de que los signos o sintomas empeoran. Patient needs to be referred to an orthopedic surgeon as soon as possible Print Language: Nepali Stand Alone Forms: Shonda Award Info., Patient Portal Info Letter TRUDY/JEN Supervising Physician BRENNON Supervising Physician: DAXA
--- NOTE | 2025-08-14 15:02 | PC.NURSE ---
old splint removed by provider, new splint applied by me. denies pain at this time.
== END 2025-08-14 15:06 | disposition home or self-care (01) ==
PROVIDERS: Emergency Provider Nurse Practitioner Family; PCP Family Medicine
DX: S52.502D Unspecified fracture of the lower end of left radius, subsequent encounter for closed fracture with routine healing (principal); X58.XXXD Exposure to other specified factors, subsequent encounter
CPT/HCPCS: 99281